=== PATIENT | female | born 1990 | race Caucasian/White ===

== ENCOUNTER → 2019-08-18 10:58 | Outpatient (BNVA) | payer OTHER, SELFPAY | PROVIDERS: Family Provider Family Medicine; PCP Family Medicine; Visit Provider Family Medicine | DX: Z86.39 Personal history of other endocrine, nutritional and metabolic disease (principal); E66.8 Other obesity | CPT/HCPCS: 80053; 84439; 84443; 85025 ==

== ENCOUNTER 2019-08-23 15:39 | Outpatient (CLI) | payer OTHER, SELFPAY ==
--- NOTE | 2019-08-23 15:45 | US_ITS ---
WS: [id number] THYROID ULTRASOUND HISTORY: history thyroid cyst COMPARISON: 05/10/2015 Right lobe: 5.6 cm x 2.0 cm x 2.0 cm. Volume: 11.6 cm3. Mildly enlarged thyroid. There is a colloid cyst in the inferior pole measuring 4 x 3 x 3 mm. There i s an additional hypoechoic ill-defined nodule in the mid gland towards the isthmus measuring 1.1 x 0. 7 x 1.0 cm. Mild peripheral increased vascularity. Left lobe: 6.0 cm x 1.6 cm x 1.4 cm. Volume: 7.2 cm3. Multiple small complex cystic nodules in the LEFT gland. There is an additional solid nodule in the i nferior pole measuring 2.1 x 0.9 x 1.4 cm. Mild increased peripheral vascularity. The large colloid c yst that was described on the prior study is no longer present. Isthmus: 0.5 cm. US/US thyroid [id number] IMPRESSION: 1. Bilateral solid lower pole thyroid nodules. Both of these nodules have conc erning features for malignancy. Not definitely visualized on the study from 201 6. 2. Recommend ultrasound-guided fine-needle aspiration of bilateral thyroid nod ules.
== END 2019-08-23 15:40 | disposition home or self-care (01) ==
LOC: RADWPI 15:52
PROVIDERS: Family Provider Family Medicine; PCP Family Medicine; Visit Provider Family Medicine
DX: Z86.39 Personal history of other endocrine, nutritional and metabolic disease (principal); E04.2 Nontoxic multinodular goiter
CPT/HCPCS: 76536

== ENCOUNTER 2019-09-23 08:06 | Outpatient (CLI) | payer MEDICAID, SELFPAY ==
--- NOTE | 2019-09-23 08:00 | FL_ITS ---
WS: [id number] HYSTEROSALPINGOGRAM The cervical opening was cannulated by the salon stylist. Then under fluoroscopic guidance, water-solu ble contrast was injected in a retrograde fashion. CLINICAL INFORMATION: N97.9 Female infertility, unspecified COMPARISON: None. FINDINGS: The uterus fills normally, with no evidence of contour abnormality, filling defect, septum, stricture , mass, or bicornuate configuration. Initial but decreased filling involving the left fallopian tube. Very faint contrast filling of the right fallopian tube with a tiny amount of contrast. Fallopian tu bes appear atretic and decreased in caliber likely due to chronic fibrosis/PID. No significant spilla ge into the peritoneum. FLUOROSCOPY TIME: 0.7 minutes. FL/FL hysterosalpingography [id number] IMPRESSION: 1. Uterus fills normally with normal contour. No uterine filling defects. 2. Atretic fallopian tubes bilaterally with a small amount of filling of the l eft. No significant spillage into the peritoneum.
--- NOTE | 2019-09-23 08:46 | PM.ACPR ---
Procedure/Consent Procedure Narrative: RADIOLOGIC PROCEDURE DATE OF PROCEDURE: 09/23/2019 DATE OF DICTATION: 09/23/2019 TIME OF DICTATION: 8: 47 PROCEDURAL DIAGNOSIS: Infertility PROCEDURE: Placement of hysterosalpingogram catheter PHYSICIAN: Farhan Chinchilla M.D. ANESTHESIA: None INDICATIONS: Patient is a 29-year-old 1, para 1 who has been attempting for >5 years. She has had an initial evaluation to the office and also semen analysis. She is now presenting for hysterosalpingogram. PROCEDURE: The procedure was explained to the patient and verbal consent provided. Sterile speculum was placed in the vagina and the cervix was prepped with Betadine. The cervix was grasped with a single-tooth tenaculum. Using Omnipaque dye, the HSG catheter was primed. The catheter was inserted into the cervix. The speculum was removed. Fluoroscopy was performed by the radiologist. Omnipaque dye was injected into the endometrial cavity with normal filling of the cavity. Free spillage of dye noted from the left tube. Filling of the right tube was noted, but could not confirm spillage from the right tube. 10 mL of dye was used. The tenaculum and catheter were removed. Patient tolerated the procedure well. Please see separate radiologist's report for final interpretation. FOLLOWUP APPOINTMENT: She is to followup at her next scheduled appointment.
[2019-09-23] MEDS: iohexol 300 mg/mL 50 mL Btl VAGINAL (08:51)
== END 2019-09-23 08:07 | disposition home or self-care (01) ==
LOC: RAD 08:06
PROVIDERS: PCP Family Medicine; Visit Provider Obstetrics & Gynecology
DX: N97.9 Female infertility, unspecified (principal)
CPT/HCPCS: 12345; 74740

== ENCOUNTER → 2019-11-04 14:13 | Outpatient (BNVA) | payer MEDICAID, SELFPAY | PROVIDERS: PCP Family Medicine; Visit Provider Obstetrics & Gynecology | DX: N97.9 Female infertility, unspecified (principal) | CPT/HCPCS: 84144 ==

== ENCOUNTER → 2019-12-01 10:28 | Outpatient (BNVA) | payer MEDICAID, SELFPAY | PROVIDERS: PCP Family Medicine; Visit Provider Obstetrics & Gynecology | DX: N97.9 Female infertility, unspecified (principal) | CPT/HCPCS: 84144 ==

== ENCOUNTER → 2020-01-11 12:35 | Outpatient (BNVA) | payer MEDICAID, SELFPAY | PROVIDERS: PCP Family Medicine; Visit Provider Family Medicine | DX: E03.9 Hypothyroidism, unspecified (principal); D50.8 Other iron deficiency anemias; M79.7 Fibromyalgia; E66.8 Other obesity; M51.9 Unspecified thoracic, thoracolumbar and lumbosacral intervertebral disc disorder; Z86.39 Personal history of other endocrine, nutritional and metabolic disease | CPT/HCPCS: 80053; 84443; 85025; 85651 ==

== ENCOUNTER → 2020-05-24 14:10 | Outpatient (BNVA) | payer BC, MEDICAID, SELFPAY | PROVIDERS: PCP Family Medicine; Visit Provider Obstetrics & Gynecology | DX: Z20.2 Contact with and (suspected) exposure to infections with a predominantly sexual mode of transmission (principal); N76.0 Acute vaginitis; B96.89 Other specified bacterial agents as the cause of diseases classified elsewhere | CPT/HCPCS: 86592; 87491; 87591; 87661; 87806 ==

== ENCOUNTER → 2020-07-13 13:44 | Outpatient (BNVA) | payer BC, MEDICAID, SELFPAY | PROVIDERS: PCP Family Medicine; Referring Provider Family Medicine; Visit Provider Anesthesiology Pain Medicine | DX: M25.551 Pain in right hip (principal); M25.552 Pain in left hip; M47.816 Spondylosis without myelopathy or radiculopathy, lumbar region; M54.16 Radiculopathy, lumbar region; M54.9 Dorsalgia, unspecified; F17.210 Nicotine dependence, cigarettes, uncomplicated; Z79.891 Long term (current) use of opiate analgesic | CPT/HCPCS: 99204 ==

== ENCOUNTER 2020-07-25 19:54 | Emergency (ER) | payer BC, MEDICAID, SELFPAY ==
[2020-07-25 20:07] VITALS: BP 144/103; PULSE 87; RESP 18; TEMP 36.8; O2SAT 100; BMI 29.6
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
--- NOTE | 2020-07-25 22:33 | XR_ITS ---
WS: [id number] Exam: XR hip RT 2-3V wo/w pel* [id number] Date/Time of Exam: 07/25/2020 10:35 PM Reason For Exam: injury with pain Findings: No fractures or bone anomalies are noted. No unusual soft tissue masses or calcifications are seen. The bony elements of the hip are in adequate alignment. XR/XR hip RT 2-3V wo/w pel* [id number] IMPRESSION: Negative right hip.
--- NOTE | 2020-07-25 22:33 | XR_ITS ---
WS: [id number] Exam: XR knee RT 3V* [id number] Date/Time of Exam: 07/25/2020 10:35 PM Reason For Exam: injury with pain No fracture or dislocation. No joint effusion. Joint compartments are relatively well maintained. XR/XR knee RT 3V* [id number] IMPRESSION: 1. No acute fracture noted.
[2020-07-25] MEDS: ondansetron 4 MG Tablet PO (22:57)
[2020-07-25 22:58] VITALS: RESP 18
[2020-07-25] MEDS: morphine 4 mg/mL SDV 1 mL IM (22:58)
--- NOTE | 2020-07-25 22:59 | XR_ITS ---
WS: [id number] Exam: XR lumbar spine 2-3V* [id number] Date/Time of Exam: 07/25/2020 11:00 PM Reason For Exam: low back pain after injury Comparison 06/18/2016. No fracture or dislocation. The disc spaces are preserved. Posterior elements are intact. SI joints a re open. XR/XR lumbar spine 2-3V* [id number] IMPRESSION: 1. Negative lumbar spine study.
[2020-07-26 00:06] VITALS: BP 127/85; PULSE 77; RESP 18; TEMP 36.9; O2SAT 98
== END 2020-07-26 00:07 | disposition home or self-care (01) ==
PROVIDERS: Emergency Provider Physician Assistant; PCP Family Medicine
DX: M54.16 Radiculopathy, lumbar region (principal); J01.00 Acute maxillary sinusitis, unspecified; F17.210 Nicotine dependence, cigarettes, uncomplicated
CPT/HCPCS: 72100; 73502; 73562; 96372; 99284; J2270; J2930; Q0162

== ENCOUNTER → 2020-08-01 15:04 | Outpatient (BNVA) | payer BC, MEDICAID, SELFPAY | PROVIDERS: PCP Family Medicine; Visit Provider Podiatrist Foot & Ankle Surgery | DX: S82.431A Displaced oblique fracture of shaft of right fibula, initial encounter for closed fracture (principal); X58.XXXA Exposure to other specified factors, initial encounter; M25.571 Pain in right ankle and joints of right foot | CPT/HCPCS: 73610 ==

== ENCOUNTER 2020-08-01 15:50 | Outpatient (CLI) | payer BC, MEDICAID, SELFPAY | END 2020-08-01 15:51 | disposition home or self-care (01) | LOC: SPT 15:59 | PROVIDERS: PCP Family Medicine; Visit Provider Podiatrist Foot & Ankle Surgery | DX: Z46.89 Encounter for fitting and adjustment of other specified devices (principal); S82.851D Displaced trimalleolar fracture of right lower leg, subsequent encounter for closed fracture with routine healing; X58.XXXD Exposure to other specified factors, subsequent encounter | CPT/HCPCS: 97760; L4361 ==

== ENCOUNTER 2020-08-02 13:10 | Outpatient (CLI) | payer BC, MEDICAID, SELFPAY ==
--- NOTE | 2020-08-02 13:36 | MR_ITS ---
WS: [id number] MRI LUMBAR SPINE NONCONTRAST TECHNIQUE: Sagittal T1, T2 and STIR imaging. Axial T1 and T2 imaging. CLINICAL INFORMATION: PAIN COMPARISON: None. FINDINGS: Mild lumbar curve. No acute compression. No high-grade central canal stenosis. Disc bulging worse L5- S1. L1-L2: Normal. L2-L3: Normal. L3-L4: Mild bulging. Mild facet arthropathy. Spinal canal and foramen are patent. L4-L5: No significant disc bulging. Mild facet arthropathy. Spinal canal and foramen are patent. L5-S1: Tiny shallow central protrusion. Slight effacement of ventral thecal sac. Spinal canal and for amen are patent. Mild facet arthropathy. Partially visualized bilateral adnexal cystic lesions. This can be further evaluated ultrasound. MR/MR lumbar spine wo con* [id number] IMPRESSION: 1. Mild lumbar curve. No acute compression. No high-grade central canal stenos is. 2. Tiny shallow central protrusion L5-S1 with slight effacement of ventral the rod sac. Spinal canal and foramen are patent. 3. Mild facet arthropathy L3-4 L4-L5. 4. Partially visualized bilateral adnexal cystic lesions. This can be further evaluated with ultrasound.
--- NOTE | 2020-08-02 13:38 | XR_ITS ---
WS: [id number] LUMBAR SPINE FLEXION AND EXTENSION TECHNIQUE: 3 views of the lumbar spine: Lateral neutral, flexion, and extension views. CLINICAL INFORMATION: M47.816 - Spondylosis without myelopathy or radiculopathy, lumbar region COMPARISON: None. FINDINGS: Normal lumbar alignment on the neutral view. No instability on the flexion and extension views. Disc space narrowing L5-S1. Chronic anterior wedging at T10 and T11 XR/XR lumbar spine f/e only [id number] IMPRESSION: No instability on flexion-extension.
== END 2020-08-02 13:11 | disposition home or self-care (01) ==
PROVIDERS: PCP Family Medicine; Visit Provider Anesthesiology Pain Medicine
DX: M47.816 Spondylosis without myelopathy or radiculopathy, lumbar region (principal); M51.27 Other intervertebral disc displacement, lumbosacral region
CPT/HCPCS: 72120; 72148

== ENCOUNTER → 2020-08-04 15:47 | Outpatient (BNVA) | payer BC, MEDICAID, SELFPAY | PROVIDERS: PCP Family Medicine; Visit Provider Nurse Practitioner Family | DX: S82.431A Displaced oblique fracture of shaft of right fibula, initial encounter for closed fracture (principal); X58.XXXA Exposure to other specified factors, initial encounter | CPT/HCPCS: 73610 ==

== ENCOUNTER → 2020-08-15 15:16 | Outpatient (BNVA) | payer BC, MEDICAID, SELFPAY | PROVIDERS: PCP Family Medicine; Visit Provider Podiatrist Foot & Ankle Surgery | DX: S82.431A Displaced oblique fracture of shaft of right fibula, initial encounter for closed fracture (principal); X58.XXXA Exposure to other specified factors, initial encounter; M25.571 Pain in right ankle and joints of right foot | CPT/HCPCS: 73610 ==

== ENCOUNTER → 2020-08-25 09:52 | Outpatient (BNVA) | payer BC, MEDICAID, SELFPAY | PROVIDERS: PCP Family Medicine; Visit Provider Anesthesiology Pain Medicine | DX: M54.41 Lumbago with sciatica, right side (principal); M54.42 Lumbago with sciatica, left side; M54.9 Dorsalgia, unspecified; M54.16 Radiculopathy, lumbar region; F17.210 Nicotine dependence, cigarettes, uncomplicated; Z79.891 Long term (current) use of opiate analgesic | CPT/HCPCS: 99215 ==

== ENCOUNTER → 2020-09-06 13:16 | Outpatient (BNVA) | payer BC, MEDICAID, SELFPAY | PROVIDERS: PCP Family Medicine; Visit Provider Anesthesiology Pain Medicine | DX: M47.816 Spondylosis without myelopathy or radiculopathy, lumbar region (principal); M54.9 Dorsalgia, unspecified; F17.210 Nicotine dependence, cigarettes, uncomplicated; Z79.891 Long term (current) use of opiate analgesic | CPT/HCPCS: 64493; 64494 ==

== ENCOUNTER → 2020-09-07 14:22 | Outpatient (BNVA) | payer BC, MEDICAID, SELFPAY | PROVIDERS: PCP Family Medicine; Visit Provider Podiatrist Foot & Ankle Surgery | DX: S82.831A Other fracture of upper and lower end of right fibula, initial encounter for closed fracture (principal); X58.XXXA Exposure to other specified factors, initial encounter; M25.571 Pain in right ankle and joints of right foot | CPT/HCPCS: 73610 ==

== ENCOUNTER → 2020-09-21 13:12 | Outpatient (BNVA) | payer BC, MEDICAID, SELFPAY | PROVIDERS: PCP Family Medicine; Visit Provider Podiatrist Foot & Ankle Surgery | DX: S82.401A Unspecified fracture of shaft of right fibula, initial encounter for closed fracture (principal); X58.XXXA Exposure to other specified factors, initial encounter | CPT/HCPCS: 73610 ==

== ENCOUNTER 2020-09-21 14:38 | Outpatient (CLI) | payer BC, MEDICAID, SELFPAY | END 2020-09-21 14:39 | disposition home or self-care (01) | LOC: SPT 14:38 | PROVIDERS: PCP Family Medicine; Visit Provider Podiatrist Foot & Ankle Surgery | DX: Z46.89 Encounter for fitting and adjustment of other specified devices (principal); S82.851D Displaced trimalleolar fracture of right lower leg, subsequent encounter for closed fracture with routine healing; X58.XXXD Exposure to other specified factors, subsequent encounter | CPT/HCPCS: 97760; L1902 ==

== ENCOUNTER → 2020-09-28 12:44 | Outpatient (BNVA) | payer BC, MEDICAID, SELFPAY | PROVIDERS: PCP Family Medicine; Visit Provider Anesthesiology Pain Medicine | DX: M54.9 Dorsalgia, unspecified (principal); M54.16 Radiculopathy, lumbar region; F17.210 Nicotine dependence, cigarettes, uncomplicated; Z79.891 Long term (current) use of opiate analgesic | CPT/HCPCS: 99214 ==

== ENCOUNTER → 2020-11-16 14:32 | Outpatient (BNVA) | payer BC, MEDICAID, SELFPAY | PROVIDERS: PCP Family Medicine; Visit Provider Podiatrist Foot & Ankle Surgery | DX: S82.831A Other fracture of upper and lower end of right fibula, initial encounter for closed fracture (principal); X58.XXXA Exposure to other specified factors, initial encounter; M79.671 Pain in right foot | CPT/HCPCS: 73610 ==

== ENCOUNTER → 2020-12-06 11:54 | Outpatient (BNVA) | payer BC, MEDICAID, SELFPAY | PROVIDERS: PCP Family Medicine; Visit Provider Podiatrist Foot & Ankle Surgery | DX: S82.831A Other fracture of upper and lower end of right fibula, initial encounter for closed fracture (principal); X58.XXXA Exposure to other specified factors, initial encounter; M79.671 Pain in right foot | CPT/HCPCS: 73610 ==

== ENCOUNTER 2021-01-03 12:46 | Emergency (ER) | payer BC, MEDICAID, SELFPAY ==
[2021-01-03 13:15] VITALS: BP 128/85; PULSE 87; RESP 19; TEMP 37; O2SAT 95
[2021-01-03 13:24] VITALS: BP 126/76; PULSE 89; RESP 18; O2SAT 100
--- NOTE | 2021-01-03 13:33 | CT_ITS ---
WS: [id number] CT HEAD NONCONTRAST HISTORY: headache, fall, syncope TECHNIQUE: Contiguous axial imaging performed through the brain in 2.5 mm imaging. Bone and soft tiss ue windows. Sagittal and coronal reformats reviewed. All CT scans at [facility] use at ast one of these dose optimization techniques: automated exposure control; mA and/or kV adjustment pe r patient size (includes targeted exams where dose is matched to clinical indication); or iterative r econstruction. DLP: 831.69 mGy.cm COMPARISON: 01/17/2010 No acute intracranial hemorrhage, midline shift or mass effect. No atrophy or prior infarcts or herniation. Ventricles: Normal size with no hydrocephalus. Paranasal sinuses: As visualized are clear. Mastoid air cells: Well pneumatized. Calvarium and scalp: Skull is intact with no soft tissue edema or swelling. CT/CT head wo con* [id number] IMPRESSION: Negative head CT.
--- NOTE | 2021-01-03 13:43 | PC.PHAR ---
PT STATES SHE TAKES CARE OF HER OWN MEDICATIONS-PT STATES SHE TAKES ALOT OF IBUPROFEN PT STATES SHE TAKES 1000-1200MG SOMETIMES MORE THAN EVERY 4 HOURS-NOTES ARE MADE IN THE PHARMACY COMMENTS
--- NOTE | 2021-01-03 13:45 | ED_ITS ---
HPI - General Adult General: Chief complaint: Abdominal Pain Stated complaint: SENT BY [facility] [place]: ABD PAIN, EAR PAIN Time Seen by Provider: 01/03/21 12:56 History of Present Illness: HPI narrative: Patient is a 30-year-old female with history of obesity, hypothyroidism, prior history of anemia who presents to the emergency room for evaluation of upper abdominal pain, nausea, decreased p.o. intake and diarrhea x3 days in the setting of 1 month of R ear pain and dr beavers. Patient was seen in urgent care for all these symptoms yesterday and was diagnosed with gastritis and otitis externa. Patient was prescribed Ciprodex eardrops for the right ear symptoms and protonix for GI symptoms. Patient tells me that she is a frequent swimmer has noticed ear pain in the right side. Patient denies any vertigo, focal weakness, diplopia or tinnitus. Patient also reports cough and mild generalized weakness with the abdominal pain. Prior hx of renal colic but report different symptoms to current pain, no other prior abdominal surgeries. Denies any urinary symptoms at this time. No history of pyelonephritis. Onset:3 days ago (upper abd pain/N/diarrhea), 1 month ago (R ear pain and discharge) Duration:3 days Location:home Severity:mild/moderate Review of Systems Narrative: Constitutional: No fever, no chills. HEENT: No vision changes, +R ear pain and discharge CV: No chest pain, no palpitations PULM: no cough, no dyspnea. GI: +abdominal pain, +N/-V/+D. : No dysuria MSKEL: No muscle pain SKIN: No new rashes, no lesions. NEURO: No headache, no focal weakness. HEME: No visible bruises PSYCH: Normal mood PFSH ED PFSH: Medical History Asthma Fibromyalgia History of thyroid cyst Hypothyroid Iron deficiency anemia Lumbar disc disease Lumbar disc disease with radiculopathy Moderate obesity Venous (peripheral) insufficiency Surgical History History of carpal tunnel surgery of right wrist (11/19/13) Performed by Dr. Peterson at [facility] in [place], [place]. History of hand surgery (10/02/10) Repair of the lacerated extensor tendon third finger. Performed by Dr. Whittington at [facility] in [place], [place] Family History Grandfather Cancer Stroke Paternal Hypertension Paternal Grandmother Dementia Hypertension Paternal Unknown Diabetes Multiple family members on paternal side Psychiatric illness Aunt Suicide Aunt Sister and Cousin attempted but unsuccessful. Mother Hyperlipidemia Hypertension Father Hyperlipidemia Hypertension Family/Other Heart disease Maternal great-grandmother Breast cancer, Onset Age: 28 Maternal aunt Social History Smoking and tobacco status: current every day smoker cigarettes Alcohol intake: never Lives independently: Yes History of recent travel: No Female Reproductive History: Date of last menstrual period: 07/27/20 Physical Exam Narrative: EXAM NARRATIVE: Head: Atraumatic Eyes: PERRL, conjunctiva without injection ENT: Mucous membrane moist, +mild R EAC erythema, TM intact R, no mastoid tenderness NECK: Supple, ROM intact LUNGS: LCTAB, no crackles/rhonchi CV: RRR ABDOMEN: Soft, + mild LUQ and midepigastric tenderness to palpation, no Monaco sign, no guarding, no rebound tenderness, no CVA tenderness, no McBurney's point tenderness EXTREMITY: Normal ROM SKIN: No rash or erythema NEURO: Awake and alert, no focal motor deficits PSYCH: Normal mood and affect Course Vital Signs: Vital signs: Vital Signs Temperature 98.6 F 01/03/21 13:15 Pulse Rate 66 01/03/21 15:30 Respiratory Rate 18 01/03/21 15:30 Blood Pressure 133/79 01/03/21 15:30 Pulse Oximetry 93 01/03/21 15:30 MDM - General Adult MDM Narrative: Medical decision making narrative: 30-year-old female with history obesity, hypothyroidism presenting to the emergency room for evaluation of upper abdominal pain, diarrhea, nausea x3 days in setting of right ear discharge and pain x1 month. +Mild R EAC erythema and +LUQ/midepigastric abdominal tenderness to palpation. Earache and draniage symptoms are likely reflective of mild otitis externa. No signs of mastoiditis on CT. Bedside ultrasound did not show any signs of gallbladder pathologies. I suspect that this is gastroenteritis. White count of 6.6K, lab work-up otherwise showed a potassium of 3.4. Patient is negative for UTI. At this time, do not suspect emergent abdominal pathologies. I performed a bedside RUQ US which did not show any gallbladder pathologies at this time. Considered appendicitis however unlikely at this time given lack of signs and sx's to suggest appendicitis as etiology. Pt counseled that appendicitis may later develop and given appendicitis precautions and instructed to return if any development of RLQ tenderness, worsening or continued abdominal pain, or any fevers, chills, nausea, vomiting, or any other concerning signs or symptoms. Patient is instructed continue her Ciprodex as prescribed by urgent care clinic. Lab Data: Labs: Lab Results 01/03/21 01/03/21 01/03/21 Range/Units 14:00 14:00 14:04 WBC 6.6 (4.0-10.0) 10^3/ uL RBC 3.79 L (4.1-5.3) 10^6/u L Hgb 8.4 L (11.5-15.3) g/dL Hct 29.6 L (37.0-47.0) % MCV 78.1 L (81-99) fl MCH 22.2 L (28.0-34.0) pg MCHC 28.4 L (30.0-36.0) g/dL RDW 16.2 H (12.1-15.1) % Plt Count 347 (130-400) 10^3/c mm MPV 9.9 (7.4-10.4) fL Neut % (Auto) 67.3 % Lymph % (Auto) 20.5 % Montague % (Auto) 11.0 % Eos % (Auto) 0.5 % Baso % (Auto) 0.5 % Neut # (Auto) 4.47 (1.8-7.7) 10^3/u L Lymph # (Auto) 1.4 (0.8-4.8) 10^3/u L Montague # (Auto) 0.7 (0.2-0.9) 10^3/u L Eos # (Auto) 0.0 (0.0-0.8) 10^3/u L Baso # (Auto) 0.0 (0.0-0.1) 10^3/u L Nucleated RBC % (a uto) 0 % Nucleated RBCs # 0.0 /100WBC Sodium 137 (136-145) mmol/L Potassium 3.4 L (3.5-5.1) mmol/L Chloride 103 (98-107) mmol/L Carbon Dioxide 20 L (22-29) mmol/L Anion Gap 17.4 (5-19) BUN 4 L (6-20) mg/dL Creatinine 0.4 L (0.5-0.9) mg/dL GFR Calculation 185.0 H (90-130) mL/min Glucose 73 (65-115) mg/dL Calculated Osmolal ity 279 L (285-295) mOsm/k g Calcium 9.0 (8.5-10.5) mg/dL Total Bilirubin 0.2 (0.15-1.2) mg/dL AST 14 (0-32) U/L ALT 8 (0-33) U/L Alkaline Phosphata se 88 (35-105) IU/L Total Protein 6.9 (6.6-8.7) g/dL Albumin 4.0 (3.5-5.2) g/dL Globulin 2.9 (1.3-4.6) g/dL Lipase 11 L (13-60) U/L Urine Color (Yellow) Urine Appearance (CLEAR) Urine pH (5-7) Ur Specific Gravit y (1.005-1.030) Urine Protein (Negative) Urine Glucose (UA) (Normal) Urine Ketones (Negative) Urine Blood (Negative) Urine Nitrate (Negative) Urine Bilirubin (Negative) Prot Sulfosalicyli c Acd (Negative) Urine Urobilinogen (Negative) mg/dL Ur Leukocyte Alicia ase (Negative) Urine HCG, Qual (Negative) SARS-CoV-2 Ag (Rap id) Negative (Negative) 01/03/21 01/03/21 Range/Units 14:40 14:40 WBC (4.0-10.0) 10^3/ uL RBC (4.1-5.3) 10^6/u L Hgb (11.5-15.3) g/dL Hct (37.0-47.0) % MCV (81-99) fl MCH (28.0-34.0) pg MCHC (30.0-36.0) g/dL RDW (12.1-15.1) % Plt Count (130-400) 10^3/c mm MPV (7.4-10.4) fL Neut % (Auto) % Lymph % (Auto) % Montague % (Auto) % Eos % (Auto) % Baso % (Auto) % Neut # (Auto) (1.8-7.7) 10^3/u L Lymph # (Auto) (0.8-4.8) 10^3/u L Montague # (Auto) (0.2-0.9) 10^3/u L Eos # (Auto) (0.0-0.8) 10^3/u L Baso # (Auto) (0.0-0.1) 10^3/u L Nucleated RBC % (a uto) % Nucleated RBCs # /100WBC Sodium (136-145) mmol/L Potassium (3.5-5.1) mmol/L Chloride (98-107) mmol/L Carbon Dioxide (22-29) mmol/L Anion Gap (5-19) BUN (6-20) mg/dL Creatinine (0.5-0.9) mg/dL GFR Calculation (90-130) mL/min Glucose (65-115) mg/dL Calculated Osmolal ity (285-295) mOsm/k g Calcium (8.5-10.5) mg/dL Total Bilirubin (0.15-1.2) mg/dL AST (0-32) U/L ALT (0-33) U/L Alkaline Phosphata se (35-105) IU/L Total Protein (6.6-8.7) g/dL Albumin (3.5-5.2) g/dL Globulin (1.3-4.6) g/dL Lipase (13-60) U/L Urine Color Yellow (Yellow) Urine Appearance Clear (CLEAR) Urine pH 8 H (5-7) Ur Specific Gravit y 1.010 (1.005-1.030) Urine Protein Neg (Negative) Urine Glucose (UA) Norm (Normal) Urine Ketones Negative (Negative) Urine Blood Neg (Negative) Urine Nitrate Negative (Negative) Urine Bilirubin Neg (Negative) Prot Sulfosalicyli c Acd Negative (Negative) Urine Urobilinogen Neg (Negative) mg/dL Ur Leukocyte Alicia ase Negative (Negative) Urine HCG, Qual Negative (Negative) SARS-CoV-2 Ag (Rap id) (Negative) Imaging Data^: Other Imaging: Radiologist's impression: [id number] [facility].[place], [place] [address]YW Scan ReportSigned Patient: Helen Mccauley #: [id number]: 1990Acct#:[id number]/Sex: 30 / FADM Date: 01/03/21Loc: ERRoom/Bed:Attending Dr: Ordering Provider/Ordering MD: Santiago Mazariegos MD Date of Service: 01/03/21 Procedure(s): CT head wo con* [id number] Accession Number(s): [id number] Report Number: [id number] WS: [id number] CT HEAD NONCONTRAST HISTORY: headache, fall, syncope TECHNIQUE: Contiguous axial imaging performed through the brain in 2.5 mm imaging. Bone and soft tissue windows. Sagittal and coronal reformats reviewed. All CT scans at [facility] use at least one of these dose optimization techniques: automated exposure control; mA and/or kV adjustment per patient size (includes targeted exams where dose is matched to clinical ind ication); or iterative reconstruction. DLP: 831.69 mGy.cm COMPARISON: 01/17/2010 No acute intracranial hemorrhage, midline shift or mass effect. No atrophy or prior infarcts or herniation. Ventricles: Normal size with no hydrocephalus. Paranasal sinuses: As visualized are clear. Mastoid air cells: Well pneumatized. Calvarium and scalp: Skull is intact with no soft tissue edema or swelling. CT/CT head wo con* [id number] IMPRESSION: Negative head CT. Dictated By:Nitza Smith DOSigned By:Nitza Smith DOSigned Date/Time:01/03/21 1431DD/ 1429 Discharge Plan Discharge Patient Disposition: Home Clinical Impression: Diarrhea, Abdominal pain, Nausea, Anemia, Otitis externa Condition: Stable Prescriptions: New Maalox Advanced 1,000-60 mg tablet,chewable 1 tab PO TID PRN (Reason: abdominal pain) 7 Days Qty: 21 RF: 0 Pepcid AC 20 mg tablet 20 mg PO BID PRN (Reason: abdominal pain) 28 Days Qty: 56 RF: 0 Pepto-Bismol 262 mg tablet 2 tab PO Q30M PRN (Reason: abdominal pain) 10 Days Qty: 30 RF: 0 No Action aspirin 81 mg tablet,chewable 81 mg PO DAILY RF: 0 (DME) ASO to the Right See Rx Instructions .ROUTE .MEDSUPPLY Qty: 1 RF: 0 ciprofloxacin-dexamethasone [Ciprodex] 0.3-0.1 % drops,suspension 4 drp otic (ear) Q12H 7 Days Qty: 7.5 RF: 0 pantoprazole [Protonix] 40 mg tablet,delayed release (DR/EC) 40 mg PO DAILY 14 Days Qty: 14 RF: 0 loratadine [Claritin] 10 mg tablet 10 mg PO DAILY RF: 0 albuterol sulfate [ProAir HFA] 90 mcg/actuation HFA aerosol inhaler 2 puff inhalation Q6H PRN (Reason: shortness of breath or wheezing) Qty: 8.5 RF: 0 (DME) ASO to the Right See Rx Instructions .ROUTE .MEDSUPPLY Qty: 1 RF: 0 tramadol 50 mg tablet 50 mg PO TID PRN (Reason: pain) 30 Days Qty: 90 RF: 5 phentermine 37.5 mg capsule 37.5 mg PO DAILY Qty: 30 RF: 0 cyclobenzaprine 5 mg tablet 5 mg PO TID PRN (Reason: muscle spasm) Qty: 90 RF: 0 Tylenol Extra Strength 500 mg Tablet 1,000 mg PO Q4H PRN (Reason: Pain) RF: 0 ibuprofen 200 mg Tablet 1,000 - 1,200 mg PO Q4H PRN (Reason: Pain) RF: 0 diclofenac sodium 75 mg tablet,delayed release (DR/EC) 75 mg PO BID PRN (Reason: Pain) RF: 0 gabapentin 800 mg tablet 800 mg PO TID RF: 0 trazodone 100 mg tablet 100 - 200 mg PO BEDTIME RF: 0 Discharge Orders: Discharge ED (Routine); Ordered 01/03/21 Ordered By: Santiago Mazariegos Referrals: Domingo Gardner MD [Primary Care Provider] - Discharge Diet: Advance as tolerated Discharge Activity: Resume usual activity Patient Instructions: Diarrhea - Adult, Abdominal Pain (ED) Activity Restrictions/Additional Instructions: Come back to the emergency room if your symptoms has not improved, if you have any signs of dehydration, any worsening vomiting, any abdominal pain, or any new or concerning issues. . Coding Level of Care Code ED Bird Raiser for Gordon Jurado
[2021-01-03] MEDS: acetaminophen 500 mg Tablet PO (14:12)
[2021-01-03] MEDS: sodium chloride 0.9% 1,000 ML 999 ML IV (14:13)
[2021-01-03 14:14] LABS: Basophils % 0.5 %; Eosinophils % 0.5 %; Hematocrit 29.6 % (37.0-47.0); Hemoglobin 8.4 g/dL (11.5-15.3); Lymphocytes # 1.4 10^3/uL (0.8-4.8); Lymphocytes % 20.5 %; Mean Corpuscular HGB Conc 28.4 g/dL (30.0-36.0); Mean Corpuscular Hemoglobin 22.2 pg (28.0-34.0); Mean Corpuscular Volume 78.1 fl (81-99); Mean Platelet Volume 9.9 fL (7.4-10.4); Monocytes # 0.7 10^3/uL (0.2-0.9); Neutrophils # 4.47 10^3/uL (1.8-7.7); Neutrophils % 67.3 %; Nucleated Red Blood Cells % 0 %; Platelet Count 347 10^3/cmm (130-400); Red Blood Count 3.79 10^6/uL (4.1-5.3); Red Cell Distribution Width 16.2 % (12.1-15.1); White Blood Count 6.6 10^3/uL (4.0-10.0)
[2021-01-03] MEDS: ondansetron 2 mg/ML SDV 2 mL 4 MG IVP (14:15)
[2021-01-03] MEDS: lidocaine 2% viscous 15 ML, aluminum-mag hydrox-simethicon 30 ML, sucralfate oral liq 1 GM PO (14:18)
--- NOTE | 2021-01-03 14:40 | ECG_ITS ---
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 Measurements Intervals Chandler Rate: 52 P: 47 IA: 136 QRS: 47 QRSD: 83 T: 49 QT: 426 QTc: 399 Interpretive Statements SINUS BRADYCARDIA No previous ECG available for comparison Electronically Signed On 01-03-2021 19:39:24 CDT by Joseph Panchal M.D. [id number]
[2021-01-03 14:55] LABS: Alanine Aminotransferase 8 U/L (0-33); Alkaline Phosphatase 88 IU/L (35-105); Anion Gap 17.4 (5-19); Aspartate Amino Transferase 14 U/L (0-32); Blood Urea Nitrogen 4 mg/dL (6-20); Carbon Dioxide 20 mmol/L (22-29); Chloride 103 mmol/L (98-107); Globulin 2.9 g/dL (1.3-4.6); Glucose 73 mg/dL (65-115); Lipase 11 U/L (13-60); Osmolality Calculated 279 mOsm/kg (285-295); Potassium 3.4 mmol/L (3.5-5.1); Sodium 137 mmol/L (136-145); Total Bilirubin 0.2 mg/dL (0.15-1.2); Total Protein 6.9 g/dL (6.6-8.7)
[2021-01-03 15:30] VITALS: BP 133/79; PULSE 66; RESP 18; O2SAT 93
[2021-01-03 15:38] LABS: SARS Covid-2 Antigen Negative (Negative)
[2021-01-03 15:49] LABS: Add Urine Microscopic? NO; Charge for UA Resulting for Rev
[2021-01-03] MEDS: alum-mag-hydroxide-sime 30 mL UDC PO (15:49)
[2021-01-03 16:03] LABS: Bilirubin Urine Neg (Negative); Blood Urine Neg (Negative); Glucose Urine UA Norm (Normal); Ketones Urine Negative (Negative); Leukocyte Esterase Urine Negative (Negative); Nitrate Urine Negative (Negative); Protein Urine Neg (Negative); Sulfosalicylic Acid Urine Negative (Negative); Urine Appearance Clear (CLEAR); Urine Color Yellow (Yellow); Urobilinogen Urine Neg (Negative); pH Urine 8 (5-7)
[2021-01-04 16:19] LABS: Coronavirus Test Green County Not Detected
--- NOTE | 2021-01-11 13:27 | DCPLANNER ---
Addendum entered by Ifrah Hampton 01/25/21 15:48: Patient has an appointment scheduled, and [facility] will contact patient with appointment information. Original Note: modeling agency manager had message to schedule a follow up appointment for patient with a GI specialist. modeling agency manager spoke with patient and she stated that she would like to be referred to a GI specialist at [facility]. modeling agency manager faxed patients information to [facility], who will call patient with appointment information.
== END 2021-01-03 16:20 | disposition home or self-care (01) ==
PROVIDERS: Emergency Provider Emergency Medicine; PCP Family Medicine
DX: R10.9 Unspecified abdominal pain (principal); R19.7 Diarrhea, unspecified; R11.0 Nausea; D64.9 Anemia, unspecified; H60.91 Unspecified otitis externa, right ear; F17.210 Nicotine dependence, cigarettes, uncomplicated; Z20.822 Contact with and (suspected) exposure to COVID-19
CPT/HCPCS: 70450; 80053; 81003; 81025; 83690; 85025; 87426; 87635; 93005; 96361; 96374; 99284; J2405; J7030

== ENCOUNTER → 2021-01-17 09:17 | Outpatient (BNVA) | payer BC, MEDICAID, SELFPAY | PROVIDERS: PCP Family Medicine; Visit Provider Anesthesiology Pain Medicine | DX: G89.29 Other chronic pain (principal); M54.16 Radiculopathy, lumbar region; Z79.891 Long term (current) use of opiate analgesic | CPT/HCPCS: 99214 ==

== ENCOUNTER → 2021-02-12 15:47 | Outpatient (BNVA) | payer BC, MEDICAID, SELFPAY | PROVIDERS: PCP Family Medicine; Visit Provider Nurse Practitioner | DX: J32.9 Chronic sinusitis, unspecified (principal); J40 Bronchitis, not specified as acute or chronic | CPT/HCPCS: 71046 ==

== ENCOUNTER → 2021-03-09 13:32 | Outpatient (BNVA) | payer BC, MEDICAID, SELFPAY | PROVIDERS: PCP Family Medicine; Visit Provider Nurse Practitioner Family | DX: Z20.822 Contact with and (suspected) exposure to COVID-19 (principal) | CPT/HCPCS: 87635 ==

== ENCOUNTER 2021-03-21 16:13 | Emergency (ER) | payer BC, MEDICAID, SELFPAY ==
[2021-03-21 16:29] VITALS: BP 127/66; PULSE 81; RESP 17; TEMP 36.8; O2SAT 99; BMI 28.4
[2021-03-21 16:34] VITALS: O2SAT 99
--- NOTE | 2021-03-21 16:55 | W.ED.COVID ---
HPI - COVID General: Chief Complaint: COVID symptoms Stated Complaint: Headaches/Cold Chills/Nausea/Fever Time Seen by Provider: 03/21/21 16:41 Source: patient Mode of arrival: ambulatory Limitations: no limitations Triage information: Has fever, cough or shortness of breath. Exposure to COVID + person last 14 days History of Present Illness: HPI Narrative: Patient is a nice 30-year-old female who presents to ED today for evaluation of COVID symptoms. Patient states she tested positive for COVID on 03/09/2021. She states she began having symptoms approximately 48 hours before the positive test. This would make her on day 14 of symptoms. Patient tells me she will have good days where she is mildly symptomatic and then others or symptoms seem to be a little bit more burdensome. She is complaining of intermittent fevers, nonproductive cough, fatigue, shortness of breath, headaches, and diarrhea. Patient states she is just here because her quarantine was supposed to be lifted after 10 days but because she is symptomatic feels she probably needs to continue quarantining and will need a note for work for this. Patient is continuing to eat and drink well. complaint: known COVID positive Prior covid testing: yes, results known Prior testing date: 03/09/21 COVID 19 common symptoms: positive fever(s), non-productive cough, dyspnea, fatigue, body aches, headache(s) and diarrhea; negative nasal congestion, nausea or vomiting COVID 19 other sytmptoms: negative chest pain COVID Results: SARS-CoV-2 Antigen (Rapid) Negative (Negative) 01/03/21 14:04 01/03/21 SARS-CoV-2 RNA (RT-PCR) Detected (NOT DETECTED) A 03/09/21 13:32 03/09/21 Nasal/Oral Coronavirus 2019 PCR Not detected 01/03/21 14:04 01/03/21 Review of Systems Const: Reports: fever(s), body aches and fatigue Eyes: Denies: change in vision ENMT: Denies: nasal discharge, nasal congestion, post nasal drip or sinus pain Card: Reports: dyspnea on exertion; Denies: chest pain, palpitations, irregular heart rhythm, edema, swelling of feet/ankles, lightheadedness, syncope, pre-syncope or orthopnea Resp: Reports: dyspnea and non-productive cough; Denies: wheezing or hemoptysis GI: Reports: diarrhea; Denies: abdominal pain, nausea or vomiting : Denies: flank pain or dysuria Musc: Denies: neck pain, back pain, extremity pain, joint pain or joint redness Skin/Breast: Denies: rash Neuro: Reports: headache(s); Denies: numbness in extremities, weakness in extremities, sensory changes or dizziness PFSH ED PFSH: Medical History Asthma Fibromyalgia History of thyroid cyst Hypothyroid Iron deficiency anemia Lumbar disc disease Lumbar disc disease with radiculopathy Moderate obesity Venous (peripheral) insufficiency Surgical History History of carpal tunnel surgery of right wrist (11/19/13) Performed by Dr. Peterson at [facility] in [place], [place]. History of hand surgery (10/02/10) Repair of the lacerated extensor tendon third finger. Performed by Dr. Whittington at [facility] in [place], [place] Family History Grandfather Cancer Stroke Paternal Hypertension Paternal Grandmother Dementia Hypertension Paternal Unknown Diabetes Multiple family members on paternal side Psychiatric illness Aunt Suicide Aunt Sister and Cousin attempted but unsuccessful. Mother Hyperlipidemia Hypertension Father Hyperlipidemia Hypertension Family/Other Heart disease Maternal great-grandmother Breast cancer, Onset Age: 28 Maternal aunt Social History (Updated 03/09/21 @ 11:37 by Susan Whittington NP) Smoking and tobacco status: current every day smoker cigarettes Alcohol intake: never Lives independently: Yes History of recent travel: No Female Reproductive History: Date of last menstrual period: 07/27/20 Physical Exam Const: COMMON NORMALS: no acute distress, average body habitus, patient oriented x3, no limitations, healthy appearing, alert and well nourished GENERAL APPEARANCE: cooperative ORIENTATION/CONSCIOUSNESS: Yes awake, Yes oriented to person, Yes oriented to place and Yes oriented to time HENMT: COMMON NORMALS: normocephalic and atraumatic HEAD & SCALP: normocephalic and atraumatic Resp: COMMON NORMALS: normal respiratory effort and clear to auscultation bilaterally AUSCULTATION: clear to auscultation bilaterally Cardio: COMMON NORMALS: regular rate and regular rhythm RATE: regular rate RHYTHM: regular rhythm Extremity: COMMON NORMALS: normal to inspection Neuro: VERONIQUE COMA SCALE: document GCS findings Veronique coma scale eye opening: Spontaneous Hayward coma scale verbal response: Orientated [place] coma scale motor response: Obey commands Hayward coma scale total score: 15 COMMON NORMALS: patient oriented x3 SENSORIUM/ORIENTATION: Yes alert, Yes oriented to person, Yes oriented to place and Yes oriented to time Skin: COMMON NORMALS: no rashes or lesions noted GENERAL SKIN EXAM: no rashes or lesions noted Course Vital Signs: Vital signs: Vital Signs Temperature 98.3 F 03/21/21 16:29 Pulse Rate 81 03/21/21 16:29 Respiratory Rate 17 03/21/21 17:17 Blood Pressure 127/66 03/21/21 16:29 Pulse Oximetry 99 03/21/21 17:17 MDM - COVID MDM Narrative: Medical decision making narrative: Patient clinically appears well and in no acute distress. Her vital signs are perfect. She is past 10 days of symptoms therefore does not qualify for MCA. Do not feel she would get much benefit from oral dexamethasone either. Discussed long-haul COVID presentation. Recommend continuing conservative treatment at this time. Return to ED precautions given. She will need to continue her quarantine until she is fever free for 24 hours without medications and symptoms are improving. COVID Results: SARS-CoV-2 Antigen (Rapid) Negative (Negative) 01/03/21 14:04 01/03/21 SARS-CoV-2 RNA (RT-PCR) Detected (NOT DETECTED) A 03/09/21 13:32 03/09/21 Nasal/Oral Coronavirus 2019 PCR Not detected 01/03/21 14:04 01/03/21 Monoclonal Antibody - ED Inclusion/Exclusion Criteria age >/= 12 years, weight >/= 40kg /88lbs and + direct Sars-Cov-2 test less than 7-10 days ago obesity (BMI >25 or 85%til for age) and chronic lung disease (asthma) not requiring hospitalization, not requiring oxygen (if not chronically on oxygen) and no increase oxygen requirement (if chronically on oxygen) Plan for treatment Does not meet criteria (DO NOT GIVE) Discharge Plan Discharge Patient Disposition: Home Clinical Impression: COVID-19 Condition: Stable Prescriptions: No Action albuterol sulfate [ProAir HFA] 90 mcg/actuation HFA aerosol inhaler 2 puff inhalation Q6H PRN (Reason: shortness of breath or wheezing) Qty: 8.5 RF: 0 tizanidine 4 mg tablet 4 mg PO BID PRN (Reason: muscle spasticity) Qty: 60 RF: 0 loratadine [Claritin] 10 mg tablet 10 mg PO DAILY RF: 0 ondansetron HCl 4 mg tablet 4 mg PO Q8H PRN (Reason: nausea and vomiting) Qty: 14 RF: 0 phentermine 37.5 mg capsule 37.5 mg PO DAILY Qty: 30 RF: 0 tramadol 50 mg tablet 50 mg PO TID PRN (Reason: pain) 30 Days Qty: 90 RF: 5 Tylenol Extra Strength 500 mg Tablet 1,000 mg PO Q4H PRN (Reason: Pain) RF: 0 ibuprofen 200 mg Tablet 1,000 - 1,200 mg PO Q4H PRN (Reason: Pain) RF: 0 diclofenac sodium 75 mg tablet,delayed release (DR/EC) 75 mg PO BID PRN (Reason: Pain) RF: 0 gabapentin 800 mg tablet 800 mg PO TID RF: 0 trazodone 100 mg tablet 100 - 200 mg PO BEDTIME RF: 0 Discharge Orders: Discharge ED (Routine); Ordered 03/21/21 Ordered By: Sapna Simental Referrals: Domingo Gardner MD [Primary Care Provider] - Patient Instructions: COVID-19 (Coronavirus Disease 2019) (ED), Long COVID (ED) Activity Restrictions/Additional Instructions: As we discussed you need to continue your quarantine until you are fever free for 24 hours without medications and symptoms are consistently improving. You may return to the emergency department at anytime for severe shortness of breath, chest pain, difficulty breathing, or any other concerns you may have. I hope you begin to feel better soon. Stand Alone Forms: Work/School Release Coding Level of Care Code ED Foundation Engineer for Gordon Jurado
[2021-03-21 17:17] VITALS: RESP 17; O2SAT 99
== END 2021-03-21 17:18 | disposition home or self-care (01) ==
PROVIDERS: Emergency Provider Physician Assistant; PCP Family Medicine
DX: U07.1 COVID-19 (principal); F17.210 Nicotine dependence, cigarettes, uncomplicated
CPT/HCPCS: 99281

== ENCOUNTER 2021-03-27 13:37 | Emergency (ER) | payer BC, MEDICAID, SELFPAY ==
[2021-03-27 13:59] VITALS: BP 133/86; PULSE 86; RESP 14; TEMP 36.8; O2SAT 99; BMI 27.9
--- NOTE | 2021-03-27 14:08 | XRR_ITS ---
PROCEDURE INFORMATION: Exam: XR Chest Exam date and time: 03/27/2021 2:08 PM Age: 30 years old Clinical indication: Fever; Additional info: Covid symptoms, fevers TECHNIQUE: Imaging protocol: XR of the chest. Views: 1 view. COMPARISON: CR XR chest 2V* [id number] 02/12/2021 3:50 PM FINDINGS: Lungs: Unremarkable. No consolidation. Pleural spaces: Unremarkable. No pleural effusion. No pneumothorax. Heart/Mediastinum: Unremarkable. No cardiomegaly. Bones/joints: Unremarkable. XR/XR chest 1V portable [id number] IMPRESSION: No acute findings. Radiation Dose CTDIVOL = (mGy): DLP = (mGy-cm)
--- NOTE | 2021-03-27 14:08 | W.ED.COVID ---
Documented by User: FAINA Leong 03/27/21 16:04 HPI - COVID General: Chief Complaint: COVID symptoms Stated Complaint: sob,fever 101-102,h/a,sinus congestion,nausea Time Seen by Provider: 03/27/21 14:07 Source: patient Mode of arrival: ambulatory Limitations: no limitations Triage information: Has fever, cough or shortness of breath. No known COVID + exposure last 14 days History of Present Illness: HPI Narrative: Patient is a 30-year-old female who presents to ED today for prolonged COVID-like symptoms. Patient was seen here last week for identical symptoms. Please refer to that specific note for documentation. She is complaining today of a headache, sinus pain/pressure, nonproductive cough, shortness of breath with exertion, intermittent fevers, and diarrhea. She states she was sent home from work yesterday because of fevers of 102. She states her work is requiring a work note if she needs to further be off. Patient tested positive for COVID on 03/09. MD complaint: known COVID positive Prior covid testing: yes, results known Prior testing date: 03/09/21 COVID 19 common symptoms: positive fever(s), cough, dyspnea, fatigue, body aches, headache(s), nasal congestion and diarrhea; negative throat pain, nausea or vomiting COVID 19 other sytmptoms: negative chest pain or confusion Onset (ago): week(s) Severity: moderate Pertinent comorbid conditions: COPD/respiratory disease (asthma) Treatment prior to arrival: antibiotics (patient states she is currently taking Augmentin) COVID Results: SARS-CoV-2 Antigen (Rapid) Negative (Negative) 01/03/21 14:04 01/03/21 SARS-CoV-2 RNA (RT-PCR) Detected (NOT DETECTED) A 03/09/21 13:32 03/09/21 Nasal/Oral Coronavirus 2019 PCR Not detected 01/03/21 14:04 01/03/21 Review of Systems Const: Reports: fever(s), body aches and fatigue Eyes: Denies: change in vision, blurry vision, photophobia, eye discomfort, eye discharge, floaters or seeing flashes ENMT: Reports: ear or mastoid pain, nasal discharge, nasal congestion and sinus pain; Denies: throat pain, odynophagia, dental pain or epistaxis Card: Reports: dyspnea on exertion; Denies: chest pain, palpitations, irregular heart rhythm, edema, swelling of feet/ankles, lightheadedness, syncope, pre-syncope or orthopnea Resp: Reports: dyspnea, wheezing and chest congestion; Denies: hemoptysis GI: Reports: diarrhea; Denies: abdominal pain, nausea, vomiting, hematochezia or melena : Denies: flank pain, dysuria, hematuria, vaginal odor or vaginal discharge Musc: Denies: neck pain, back pain, extremity pain or joint pain Skin/Breast: Denies: rash Neuro: Reports: headache(s); Denies: numbness in extremities, weakness in extremities, sensory changes, lack of coordination, difficulty walking, dizziness or confusion PFSH ED PFSH: Medical History (Updated 03/28/21 @ 12:37 by Domingo Gardner MD) Asthma Constipation resume habit of more fiber in the diet (cereal) and daily use of miralax Fibromyalgia History of thyroid cyst Hypothyroid Iron deficiency anemia Lumbar disc disease Lumbar disc disease with radiculopathy Moderate obesity Venous (peripheral) insufficiency Surgical History History of carpal tunnel surgery of right wrist (11/19/13) [place] [facility] [place] History of hand surgery (10/02/10) Repair of the lacerated extensor tendon third finger. [place] [facility] [place] Family History Grandfather Cancer Stroke Paternal Hypertension Paternal Grandmother Dementia Hypertension Paternal Unknown Diabetes Multiple family members on paternal side Psychiatric illness Aunt Suicide Aunt Sister and Cousin attempted but unsuccessful. Mother Hyperlipidemia Hypertension Father Hyperlipidemia Hypertension Family/Other Heart disease Maternal great-grandmother Breast cancer, Onset Age: 28 Maternal aunt Social History Smoking and tobacco status: current every day smoker cigarettes Alcohol intake: never Lives independently: Yes History of recent travel: No Female Reproductive History: Date of last menstrual period: 07/27/20 Physical Exam Const: COMMON NORMALS: no acute distress, average body habitus, patient oriented x3, no limitations, healthy appearing, alert and well nourished GENERAL APPEARANCE: cooperative ORIENTATION/CONSCIOUSNESS: Yes awake, Yes oriented to person, Yes oriented to place and Yes oriented to time HENMT: COMMON NORMALS: normocephalic, atraumatic, hearing grossly normal bilaterally, external ears normal and Normal external nose present HEAD & SCALP: normal to inspection, normocephalic and atraumatic FACE & SINUS: sinus tenderness maxillary NOSE: Normal external nose present EXTERNAL EAR: Yes external ears normal Eye: GENERAL EYE: appearance normal, both eyes and all related structures Neck/C-Spine: COMMON NORMALS: full ROM, no lymphadenopathy and no meningeal signs Resp: COMMON NORMALS: normal respiratory effort and clear to auscultation bilaterally AUSCULTATION: clear to auscultation bilaterally Cardio: COMMON NORMALS: regular rate and regular rhythm RATE: regular rate RHYTHM: regular rhythm GI: COMMON NORMALS: Normal to inspection, nondistended, normoactive bowel sounds present, Soft to palpation, non-tender, No hepatosplenomegaly present and no masses PALPATION: Yes Soft to palpation and Yes No hepatosplenomegaly present Neuro: VERONIQUE COMA SCALE: document GCS findings Veronique coma scale eye opening: Spontaneous Veronique coma scale verbal response: Orientated Veronique coma scale motor response: Obey commands Hudson coma scale total score: 15 COMMON NORMALS: patient oriented x3, CN's II-XII intact bilaterally, moves all extremities, no focal motor deficits, no sensory deficits noted and gait normal SENSORIUM/ORIENTATION: Yes alert, Yes oriented to person, Yes oriented to place and Yes oriented to time MENINGEAL SIGNS: Yes no meningeal signs Skin: COMMON NORMALS: no rashes or lesions noted GENERAL SKIN EXAM: no rashes or lesions noted TRAUMA: no lacerations or abrasions Course Vital Signs: Vital signs: Vital Signs Temperature 98.2 F 03/27/21 13:59 Pulse Rate 86 03/27/21 13:59 Respiratory Rate 14 03/27/21 13:59 Blood Pressure 133/86 03/27/21 13:59 Pulse Oximetry 99 03/27/21 15:18 MDM - COVID MDM Narrative: Medical decision making narrative: Patient clinically again appears in no acute distress. Her vital signs are perfect. It is somewhat unexpected to have symptoms now almost 3 weeks past her initial COVID test. She has complained twice now of intermittent fevers but has been afebrile upon both of her ED visits. I did discuss with patient how I would like to order labs/imaging/cultures to further evaluate for other sources of her fever but she refuses. Patient wants to get home to her daughter who is home alone and wants to follow up with PCP. I spoke to Dr. Gardner's office who stated they will see her at 10:30 tomorrow. Imaging Data: CXR: Radiologist's impression: [address] [address]GPib ReportSigned Patient: Helen Mccauley #: [id number]: [id number]#:[id number]/Sex: 30 / FADM Date: 03/27/21Loc: ERRoom/Bed:Attending Dr: Ordering Provider/Ordering MD: Sapna Simental Date of Service: 03/27/21 Procedure(s): XR chest 1V portable [id number] Accession Number(s): [id number] Report Number: [id number] PROCEDURE INFORMATION: Exam: XR Chest Exam date and time: 03/27/2021 2:08 PM Age: 30 years old Clinical indication: Fever; Additional info: Covid symptoms, fevers TECHNIQUE: Imaging protocol: XR of the chest. Views: 1 view. COMPARISON: CR XR chest 2V* [id number] 02/12/2021 3:50 PM FINDINGS: Lungs: Unremarkable. No consolidation. Pleural spaces: Unremarkable. No pleural effusion. No pneumothorax. Heart/Mediastinum: Unremarkable. No cardiomegaly. Bones/joints: Unremarkable. XR/XR chest 1V portable [id number] IMPRESSION: No acute findings. Radiation Dose CTDIVOL = (mGy): DLP = (mGy-cm) Dictated By:Andi Ferguson MDSigned By:Andi Ferguson MDSigned Date/Time:03/27/21 1458DD/ 1408 COVID Results: SARS-CoV-2 Antigen (Rapid) Negative (Negative) 01/03/21 14:04 01/03/21 SARS-CoV-2 RNA (RT-PCR) Detected (NOT DETECTED) A 03/09/21 13:32 03/09/21 Nasal/Oral Coronavirus 2019 PCR Not detected 01/03/21 14:04 01/03/21 Discharge Plan Discharge Patient Disposition: Home Clinical Impression: COVID-19 long hauler Condition: Stable Prescriptions: No Action albuterol sulfate [ProAir HFA] 90 mcg/actuation HFA aerosol inhaler 2 puff inhalation Q6H PRN (Reason: shortness of breath or wheezing) Qty: 8.5 RF: 0 tizanidine 4 mg tablet 4 mg PO BID PRN (Reason: muscle spasticity) Qty: 60 RF: 0 ferrous sulfate [Iron (ferrous sulfate)] 325 mg (65 mg iron) tablet 325 mg PO BID 50 Days Qty: 100 RF: 5 polyethylene glycol 3350 [Miralax] 17 gram powder in packet 17 g PO DAILY Qty: 100 RF: 2 pantoprazole 40 mg tablet,delayed release (DR/EC) 40 mg PO DAILY 90 Days Qty: 90 RF: 0 loratadine [Claritin] 10 mg tablet 10 mg PO DAILY RF: 0 ondansetron HCl 4 mg tablet 4 mg PO Q8H PRN (Reason: nausea and vomiting) Qty: 14 RF: 0 phentermine 37.5 mg capsule 37.5 mg PO DAILY Qty: 30 RF: 0 tramadol 50 mg tablet 50 mg PO TID PRN (Reason: pain) 30 Days Qty: 90 RF: 5 Tylenol Extra Strength 500 mg Tablet 1,000 mg PO Q4H PRN (Reason: Pain) RF: 0 ibuprofen 200 mg Tablet 1,000 - 1,200 mg PO Q4H PRN (Reason: Pain) RF: 0 diclofenac sodium 75 mg tablet,delayed release (DR/EC) 75 mg PO BID PRN (Reason: Pain) RF: 0 gabapentin 800 mg tablet 800 mg PO TID RF: 0 trazodone 100 mg tablet 100 - 200 mg PO BEDTIME RF: 0 Discharge Orders: Discharge ED (Routine); Ordered 03/27/21 Ordered By: Sapna Simental Referrals: Domingo Gardner MD [Primary Care Provider] - Activity Restrictions/Additional Instructions: As we discussed you have an appointment at Dr. Gardner's office tomorrow at 10:30am. Stand Alone Forms: Work/School Release Coding Level of Care Code ED Baker Helper for Chg Fwd Exam Comprehensive Documented by User: Chon Perez DO 03/30/21 06:58 HPI - COVID General: Chief Complaint: COVID symptoms Stated Complaint: sob,fever 101-102,h/a,sinus congestion,nausea Time Seen by Provider: 03/27/21 14:07 COVID Results: SARS-CoV-2 Antigen (Rapid) Negative (Negative) 01/03/21 14:04 01/03/21 SARS-CoV-2 RNA (RT-PCR) Detected (NOT DETECTED) A 03/09/21 13:32 03/09/21 Nasal/Oral Coronavirus 2019 PCR Not detected 01/03/21 14:04 01/03/21 PFSH ED PFSH: Medical History (Updated 03/28/21 @ 12:37 by Domingo Gardner MD) Asthma Constipation resume habit of more fiber in the diet (cereal) and daily use of miralax Fibromyalgia History of thyroid cyst Hypothyroid Iron deficiency anemia Lumbar disc disease Lumbar disc disease with radiculopathy Moderate obesity Venous (peripheral) insufficiency Surgical History History of carpal tunnel surgery of right wrist (11/19/13) [place] [facility] [place] History of hand surgery (10/02/10) Repair of the lacerated extensor tendon third finger. [place] Wh[place] [facility] [place] Family History Grandfather Cancer Stroke Paternal Hypertension Paternal Grandmother Dementia Hypertension Paternal Unknown Diabetes Multiple family members on paternal side Psychiatric illness Aunt Suicide Aunt Sister and Cousin attempted but unsuccessful. Mother Hyperlipidemia Hypertension Father Hyperlipidemia Hypertension Family/Other Heart disease Maternal great-grandmother Breast cancer, Onset Age: 28 Maternal aunt Social History Smoking and tobacco status: current every day smoker cigarettes Alcohol intake: never Lives independently: Yes History of recent travel: No Course Vital Signs: Vital signs: Vital Signs Temperature 98.2 F 03/27/21 13:59 Pulse Rate 86 03/27/21 13:59 Respiratory Rate 14 03/27/21 13:59 Blood Pressure 133/86 03/27/21 13:59 Pulse Oximetry 99 03/27/21 15:18 MDM - COVID MDM Narrative: Medical decision making narrative: Chart reviewed and patient discussed with midlevel. Agree with assessment and plan. COVID Results: SARS-CoV-2 Antigen (Rapid) Negative (Negative) 01/03/21 14:04 01/03/21 SARS-CoV-2 RNA (RT-PCR) Detected (NOT DETECTED) A 03/09/21 13:32 03/09/21 Nasal/Oral Coronavirus 2019 PCR Not detected 01/03/21 14:04 01/03/21 Discharge Plan Discharge Patient Disposition: Home Clinical Impression: COVID-19 long hauler Condition: Stable Prescriptions: No Action albuterol sulfate [ProAir HFA] 90 mcg/actuation HFA aerosol inhaler 2 puff inhalation Q6H PRN (Reason: shortness of breath or wheezing) Qty: 8.5 RF: 0 tizanidine 4 mg tablet 4 mg PO BID PRN (Reason: muscle spasticity) Qty: 60 RF: 0 ferrous sulfate [Iron (ferrous sulfate)] 325 mg (65 mg iron) tablet 325 mg PO BID 50 Days Qty: 100 RF: 5 polyethylene glycol 3350 [Miralax] 17 gram powder in packet 17 g PO DAILY Qty: 100 RF: 2 pantoprazole 40 mg tablet,delayed release (DR/EC) 40 mg PO DAILY 90 Days Qty: 90 RF: 0 loratadine [Claritin] 10 mg tablet 10 mg PO DAILY RF: 0 ondansetron HCl 4 mg tablet 4 mg PO Q8H PRN (Reason: nausea and vomiting) Qty: 14 RF: 0 phentermine 37.5 mg capsule 37.5 mg PO DAILY Qty: 30 RF: 0 tramadol 50 mg tablet 50 mg PO TID PRN (Reason: pain) 30 Days Qty: 90 RF: 5 Tylenol Extra Strength 500 mg Tablet 1,000 mg PO Q4H PRN (Reason: Pain) RF: 0 ibuprofen 200 mg Tablet 1,000 - 1,200 mg PO Q4H PRN (Reason: Pain) RF: 0 diclofenac sodium 75 mg tablet,delayed release (DR/EC) 75 mg PO BID PRN (Reason: Pain) RF: 0 gabapentin 800 mg tablet 800 mg PO TID RF: 0 trazodone 100 mg tablet 100 - 200 mg PO BEDTIME RF: 0 Discharge Orders: Discharge ED (Routine); Ordered 03/27/21 Ordered By: Sapna Simental Referrals: Domingo Gardner MD [Primary Care Provider] - Activity Restrictions/Additional Instructions: As we discussed you have an appointment at Dr. Gardner's office tomorrow at 10:30am. Stand Alone Forms: Work/School Release Coding Level of Care Code ED Baker Helper for Chg Fwd Exam Comprehensive
[2021-03-27 15:18] VITALS: O2SAT 99
== END 2021-03-27 15:20 | disposition home or self-care (01) ==
PROVIDERS: Emergency Provider Physician Assistant; PCP Family Medicine
DX: U09.9 Post COVID-19 condition, unspecified (principal); F17.210 Nicotine dependence, cigarettes, uncomplicated
CPT/HCPCS: 71045; 99282

== ENCOUNTER → 2021-03-28 12:11 | Outpatient (BNVA) | payer BC, MEDICAID, SELFPAY | PROVIDERS: PCP Family Medicine; Visit Provider Family Medicine | DX: D64.9 Anemia, unspecified (principal) | CPT/HCPCS: 85018 ==

== ENCOUNTER → 2021-04-17 11:39 | Outpatient (BNVA) | payer BC, MEDICAID, SELFPAY | PROVIDERS: PCP Family Medicine; Visit Provider Family Medicine | DX: R31.9 Hematuria, unspecified (principal); D50.8 Other iron deficiency anemias | CPT/HCPCS: 81000; 85018 ==

== ENCOUNTER → 2021-10-25 19:23 | Outpatient (BNVA) | payer BC, MEDICAID, SELFPAY | PROVIDERS: PCP Family Medicine; Visit Provider Registered Nurse Neonatal Intensive Care | DX: N39.0 Urinary tract infection, site not specified (principal); R39.9 Unspecified symptoms and signs involving the genitourinary system | CPT/HCPCS: 81000; 87077; 87086; 87184 ==

== ENCOUNTER 2021-12-23 16:17 | Emergency (ER) | payer BC, MEDICAID, SELFPAY ==
--- NOTE | 2021-12-23 16:20 | XRR_ITS ---
PROCEDURE INFORMATION: Exam: XR Left Ribs Exam date and time: 12/23/2021 4:31 PM Age: 31 years old Clinical indication: Other: Lt rib pain; Additional info: L side rib pain TECHNIQUE: Imaging protocol: Radiologic exam of the Left ribs. Views: 2 views. COMPARISON: CR XR chest 1V portable [id number] 03/27/2021 2:26 PM FINDINGS: Bones/joints: No evidence of rib fracture. Soft tissues: Normal. XR/XR ribs LT 2V* [id number] IMPRESSION: No acute findings.
[2021-12-23 16:49] VITALS: BP 146/71; PULSE 71; RESP 16; TEMP 37.1; O2SAT 100; BMI 26.8
--- NOTE | 2021-12-23 17:33 | ED_ITS ---
HPI - Fall General: Chief Complaint: Fall Stated Complaint: left side ribs hurt Time Seen by Provider: 12/23/21 17:02 History of Present Illness: Patient is a 31-year-old female comes to the ED with left rib pain. Patient says yesterday she was walking out her front door and on the porch when her 3 dogs came through the door tripping patient and causing her to fall. She was approximately 2 feet in the air when she fell and hit the grass. She landed on her left side. Since fall she has had left rib pain that she rates currently a 10 out of 10. Pain worsens when she breathes or takes a deep breath. Denies any head trauma or loss of consciousness. Associated symptoms-after fall: Denies abdominal pain, chest pain, headache(s), hematuria or neck pain Review of Systems Const: Denies: fever(s), chills or fatigue Eyes: Denies: change in vision or eye discomfort ENMT: Denies: throat pain, odynophagia, nasal discharge or nasal congestion Card: Denies: chest pain, palpitations, edema, swelling of feet/ankles, dyspnea on exertion or orthopnea Resp: Reports: pain on inspiration (Left rib pain); Denies: dyspnea, productive cough or non-productive cough GI: Denies: abdominal pain, nausea, vomiting, diarrhea, constipation or hematochezia : Denies: flank pain, dysuria or hematuria Musc: Reports: other (Left rib pain); Denies: neck pain, back pain or extremity swelling Skin/Breast: Denies: rash or new lesions Neuro: Denies: headache(s), numbness in extremities or weakness in extremities PFS ED PFSH: Medical History Asthma Constipation resume habit of more fiber in the diet (cereal) and daily use of miralax COVID-19 Fibromyalgia History of thyroid cyst Hypothyroid Lumbar disc disease with radiculopathy Surgical History History of carpal tunnel surgery of right wrist (11/19/13) [place] [facility] [place]. History of hand surgery (10/02/10) Repair of the lacerated extensor tendon third finger. Per[place]. Whittington [place] [facility] [place] Family History Grandfather Cancer Stroke Paternal Hypertension Paternal Grandmother Dementia Hypertension Paternal Unknown Diabetes Multiple family members on paternal side Psychiatric illness Aunt Suicide Aunt Sister and Cousin attempted but unsuccessful. Mother Hyperlipidemia Hypertension Father Hyperlipidemia Hypertension Family/Other Heart disease Maternal great-grandmother Breast cancer, Onset Age: 28 Maternal aunt Social History Smoking and tobacco status: current every day smoker cigarettes Alcohol intake: never Lives independently: Yes History of recent travel: No Physical Exam Const: COMMON NORMALS: patient oriented x3, healthy appearing and alert GENERAL APPEARANCE: cooperative HENMT: COMMON NORMALS: normocephalic HEAD & SCALP: normocephalic MOUTH: Normal oral and palatal mucosa present THROAT: posterior oropharynx normal and uvula midline Neck/C-Spine: COMMON NORMALS: supple GENERAL: Yes normal visual inspection Chest: CHEST: Yes tenderness rib left mid-axillary line involving the 8th rib, involving the 9th rib and involving the 10th rib Resp: COMMON NORMALS: normal respiratory effort, No retractions, No use of accessory muscles and clear to auscultation bilaterally AUSCULTATION: clear to auscultation bilaterally Cardio: COMMON NORMALS: regular rate, regular rhythm, S1 normal heart sound present, S2 normal heart sound present, No gallops present (Cardio), No clicks present (Cardio), No murmurs present (Cardio) and Peripheral pulses 2+ throughout RATE: regular rate RHYTHM: regular rhythm HEART SOUNDS: S1 normal heart sound present and S2 normal heart sound present PERIPHERAL PULSES: Peripheral pulses 2+ throughout GI: COMMON NORMALS: Normal to inspection, nondistended, normoactive bowel sounds present, Soft to palpation, non-tender and no masses PALPATION: Yes Soft to palpation : COMMON NORMALS: Yes no CVA tenderness BLADDER/KIDNEY EXAM: Yes no CVA tenderness Back/Pelvis: COMMON NORMALS: no CVA tenderness Extremity: COMMON NORMALS: normal to inspection Neuro: COMMON NORMALS: patient oriented x3 SENSORIUM/ORIENTATION: Yes alert GAIT: Yes Normal gait present Skin: GENERAL SKIN EXAM: dry skin Course Vital Signs: Vital signs: Vital Signs Temperature 98.7 F 12/23/21 16:49 Pulse Rate 71 12/23/21 16:49 Respiratory Rate 16 12/23/21 16:49 Blood Pressure 146/71 12/23/21 16:49 Pulse Oximetry 100 12/23/21 16:49 Oxygen Delivery Me thod 12/23/21 16:49 MDM - Fall Medical Decision Making Patient is a 31-year-old female comes to the ED with left rib pain. Left rib pain started after she fell off front porch and her left ribs hit the ground. Denies any head trauma or loss of conscious. Since fall she has been having left rib pain that worsens with inspiration. Vitals are stable. Patient does have some palpable tenderness of left ribs 8 and 9. The rest of exam is benign. X-ray of left ribs showed no acute fractures or findings. Patient was diagnosed with left rib pain and discharged home with a prescription for hydrocodone to help with pain and an incentive spirometer to help with her breathing and to prevent any pneumonia. Told to follow-up with her PCP in the next week for reevaluation. Return to ED precautions given. Patient understood and agreed with plan. Lab Data Radiology Impressions Ribs X-Ray 12/23/21 16:20 IMPRESSION: No acute findings. Discharge Plan Discharge Patient Disposition: Home Clinical Impression: Rib pain on left side Condition: Stable Prescriptions: New ibuprofen 800 mg tablet 800 mg PO Q8H PRN (Reason: pain) Qty: 30 0RF No Action tizanidine 4 mg tablet 4 mg PO BID PRN (Reason: muscle spasticity) Qty: 60 0RF polyethylene glycol 3350 [Miralax] 17 gram powder in packet 17 g PO DAILY Qty: 100 2RF ferrous fumarate 324 mg (106 mg iron) tablet 324 mg PO BID Qty: 90 0RF loratadine [Claritin] 10 mg tablet 10 mg PO DAILY lactulose 10 gram/15 mL (15 mL) solution 15 ml PO BID 30 Days Qty: 900 0RF albuterol sulfate [ProAir HFA] 90 mcg/actuation HFA aerosol inhaler 2 puff inhalation Q6H PRN (Reason: shortness of breath or wheezing) Qty: 8.5 2RF pantoprazole 40 mg tablet,delayed release (DR/EC) 40 mg PO DAILY PRN (Reason: Epigastric pain) Qty: 30 2RF ondansetron HCl 4 mg tablet 4 mg PO Q6H PRN (Reason: nausea and vomiting) Qty: 20 0RF gabapentin 800 mg tablet See Rx Instructions .ROUTE .COMPLEX Qty: 90 5RF Dose Instruction: TAKE 1 TABLET BY MOUTH THREE TIMES A DAY Rx Instructions: TAKE 1 TABLET BY MOUTH THREE TIMES A DAY tramadol 50 mg tablet 50 mg PO TID PRN (Reason: pain) 30 Days Qty: 90 5RF Rx Instructions: Have increased the quantity from 60 to 90 Tylenol Extra Strength 500 mg Tablet 1,000 mg PO Q4H PRN (Reason: Pain) Discharge Orders: Discharge ED (Routine); Ordered 12/23/21 Ordered By: Trenton Donaldson Referrals: Domingo Gardner MD [Primary Care Provider] - Discharge Diet: Regular Discharge Activity: Increase activity as tolerated and Limit activity as instructed Patient Instructions: Opioid Safety Activity Restrictions/Additional Instructions: Follow-up with medical provider as directed in the next 7 to 10 days for reevaluation. Use incentive spirometer multiple times every hour to help your breathing and prevent developing pneumonia. Apply cold pack on sore area of ribs to help with symptoms as well. Rest, limit activity and lifting to under 10 pounds until cleared by PCP. Take medications as prescribed. Return to the ER or your medical provider if condition worsens. Please read and understand discharge instructions. Thank you for choosing [facility] for your healthcare needs today. Please realize this is an emergency room and that we are providing you with a medical screening exam and this may not be complete and all inclusive of all the testing and or work up that you may need to determine your ailment or severity of your illness. It is very important that you follow up as instructed or that you return to the Emergency Department should you have concerns or if your condition changes or worsens in any way. Stand Alone Forms: Work/School Release Coding Level of Care Code ED Supervisor Shearing for Gordon Fwd Exam Comprehensive
[2021-12-23] MEDS: HYDROcodone-acetaminophen 7.5-325 mg Tablet 1 TAB PO (18:26)
== END 2021-12-23 18:28 | disposition home or self-care (01) ==
PROVIDERS: Emergency Provider Physician Assistant; PCP Family Medicine
DX: R07.81 Pleurodynia (principal); F17.210 Nicotine dependence, cigarettes, uncomplicated
CPT/HCPCS: 71100; 99283

== ENCOUNTER → 2022-01-18 18:26 | Outpatient (BNVA) | payer BC, MEDICAID, SELFPAY | PROVIDERS: PCP Family Medicine; Visit Provider Registered Nurse Neonatal Intensive Care | DX: N39.0 Urinary tract infection, site not specified (principal); R39.9 Unspecified symptoms and signs involving the genitourinary system | CPT/HCPCS: 81000; 87077; 87086; 87184 ==

== ENCOUNTER 2022-06-12 13:04 | Emergency (ER) | payer BC, MEDICAID, SELFPAY ==
[2022-06-12 13:13] VITALS: BP 131/80; PULSE 78; RESP 16; TEMP 37; O2SAT 99; BMI 23.3
[2022-06-12 16:37] LABS: HCG Qualitative Urine. Negative (Negative)
[2022-06-12 17:05] LABS: Basophils # 0.1 10^3/uL (0.0-0.1); Basophils % 1.1 %; Eosinophils % 0.6 %; Hematocrit 26.7 % (37.0-47.0); Hemoglobin 6.9 g/dL (11.5-15.3); Lymphocytes # 2.4 10^3/uL (0.8-4.8); Lymphocytes % 37.8 %; Mean Corpuscular HGB Conc 25.8 g/dL (30.0-36.0); Mean Corpuscular Hemoglobin 18.9 pg (28.0-34.0); Mean Platelet Volume 9.2 fL (7.4-10.4); Monocytes # 0.5 10^3/uL (0.2-0.9); Monocytes % 7.7 %; Neutrophils # 3.29 10^3/uL (1.8-7.7); Neutrophils % 52.5 %; Nucleated Red Blood Cells % 0 %; Platelet Count 508 10^3/cmm (130-400); Red Blood Count 3.66 10^6/uL (4.1-5.3); Red Cell Distribution Width 17.1 % (12.1-15.1); White Blood Count 6.3 10^3/uL (4.0-10.0)
[2022-06-12 17:11] LABS: Add Urine Microscopic? YES; Bilirubin Urine Neg (Negative); Blood Urine Neg (Negative); Glucose Urine UA Norm (Normal); Ketones Urine Negative (Negative); Leukocyte Esterase Urine Negative (Negative); Nitrate Urine Negative (Negative); Protein Urine Neg (Negative); Urine Appearance Hazy (CLEAR); Urine Color Yellow (Yellow); Urobilinogen Urine Neg (Negative); pH Urine 6.5 (5-7)
[2022-06-12 17:12] LABS: Add Urine Culture? No; Amorphous Sediment Urine 1+ /hpf; RBC Urine RARE /hpf (0-2)
[2022-06-12 17:53] LABS: Alanine Aminotransferase 10 U/L (0-33); Albumin Level 4.2 g/dL (3.5-5.2); Alkaline Phosphatase 68 U/L (35-105); Anion Gap 14.3 (5-19); Aspartate Amino Transferase 18 U/L (0-32); Blood Urea Nitrogen 15 mg/dL (6-20); Calcium 9.3 mg/dL (8.5-10.5); Carbon Dioxide 26 mmol/L (22-29); Chloride 106 mmol/L (98-107); Globulin 2.2 g/dL (1.3-4.6); Glomerular Filtration Rate 95.8 mL/min (90-130); Glucose 89 mg/dL (65-115); Lipase 25 U/L (13-60); Osmolality Calculated 294 mOsm/kg (285-295); Potassium 4.3 mmol/L (3.5-5.1); Sodium 142 mmol/L (136-145); Total Bilirubin 0.2 mg/dL (0.15-1.2); Total Protein 6.4 g/dL (6.6-8.7)
--- NOTE | 2022-06-12 19:07 | ED_ITS ---
HPI - Female Genitourinary General: Chief complaint: Urogenital-Female Stated complaint: lower abd and back pain Time Seen by Provider: 06/12/22 19:07 History of Present Illness: Ms. Mccauley is a 32-year-old lady with history of anemia, back pain, thyroid disorder, fibromyalgia presenting to the emergency department for pelvic pain and generalized malaise. She reports 2-week history of gradual onset intermittent pelvic pain and rectal pain. Rectal pain is worse with bowel movements and sharp in nature. She notes sharp pain with intercourse in her vagina as well as bilateral radiation across her hips. She has had abnormal vaginal bleeding which is not like a typical period for her. Density symptoms of moderate though sometimes severe. Occasional radiation to the epigastric and upper abdominal region. No other specific changes in health, exacerbating, or alleviating factors identified. Onset (ago): week(s) Severity: moderate Female Urogenital Radiation: Non-Radiating Quality of pain: sharp and aching Consistency: progressively worsening Vaginal discharge: none Vaginal bleeding: moderate Urinary symptoms: Difficulty Urinating Exacerbating factors: intercourse Relieving factors: none Associated symptoms: Reports abdominal pain Sexual activity: Yes Review of Systems General: Reports: 10 or more systems reviewed and unremarkable except in HPI and below GI: Reports: abdominal pain PFSH ED PFSH: Medical History Asthma Constipation resume habit of more fiber in the diet (cereal) and daily use of miralax COVID-19 Fibromyalgia History of thyroid cyst Hypothyroid Lumbar disc disease with radiculopathy Surgical History History of carpal tunnel surgery of right wrist (11/19/13) Per[place]. Peterson [place] [facility] [place]. History of hand surgery (10/02/10) Repair of the lacerated extensor tendon third finger. Performed by Dr. Whittington at [facility] [place] Family History Grandfather Cancer Stroke Paternal Hypertension Paternal Grandmother Dementia Hypertension Paternal Unknown Diabetes Multiple family members on paternal side Psychiatric illness Aunt Suicide Aunt Sister and Cousin attempted but unsuccessful. Mother Hyperlipidemia Hypertension Father Hyperlipidemia Hypertension Family/Other Heart disease Maternal great-grandmother Breast cancer, Onset Age: 28 Maternal aunt Social History Smoking and tobacco status: current every day smoker cigarettes Alcohol intake: never Lives independently: Yes History of recent travel: No Physical Exam Const: COMMON NORMALS: alert GENERAL APPEARANCE: cooperative and well developed HENMT: COMMON NORMALS: normocephalic and atraumatic HEAD & SCALP: normocephalic and atraumatic Eye: COMMON NORMALS: conjunctivae normal CONJUNCTIVA: Yes conjunctivae normal SCLERA: sclerae normal Neck/C-Spine: COMMON NORMALS: supple GENERAL: Yes trachea midline Resp: COMMON NORMALS: clear to auscultation bilaterally EFFORT & INSPECTION: Yes able to speak in complete sentences AUSCULTATION: clear to auscultation bilaterally Cardio: COMMON NORMALS: regular rate and regular rhythm RATE: regular rate RHYTHM: regular rhythm GI: COMMON NORMALS: Soft to palpation PALPATION: Yes Soft to palpation, Yes Tenderness to palpation present (GI) Details: other, No Guarding due to palpation present (GI) and No Rigid due to palpation : OTHER: Pelvic exam performed with wallpaper embosser helper present. Mild tenderness about the perineum and suprapubic region externally without evidence of skin lesions or obvious cause. External genitalia appears normal. Cervix appears normal. Vaginal vault appears normal. Generalized tenderness to palpation on bimanual exam. Extremity: GENERAL: Yes normal exam except as noted and No edema Neuro: COMMON NORMALS: moves all extremities SENSORIUM/ORIENTATION: Yes alert and No Orientation impaired Psych: COMMON NORMALS: mental status grossly normal and Normal thought process present THOUGHT PROCESS: Normal thought process present Course Vital Signs: Vital signs: Vital Signs Temperature 98.6 F 06/12/22 13:13 Pulse Rate 71 06/12/22 19:15 Respiratory Rate 18 06/12/22 19:15 Blood Pressure 126/54 06/12/22 19:15 Pulse Oximetry 99 06/12/22 19:15 Oxygen Delivery Me thod 06/12/22 19:15 MDM - Female Medical Decision Making 32-year-old lady presenting with worsening pelvic pain. Patient is nontoxic. Exam as above. Labs with no leukocytosis, anemia is present and discussed with patient. No significant hematologic abnormalities. No evidence of urinary tract infection. I ordered imaging however the patient decided to leave prior to completion of ED evaluation. The exact cause of patient symptoms is unclear. Patient left against medical advice. Medical Records I reviewed the patient's medical records. Lab Data I reviewed the patient's lab results. 06/12/22 16:43 06/12/22 16:43 Laboratory Results WBC 6.3 10^3/uL (4.0-10.0) 06/12/22 16:43 RBC 3.66 10^6/uL (4.1-5.3) L 06/12/22 16:43 Hgb 6.9 g/dL (11.5-15.3) L 06/12/22 16:43 Hct 26.7 % (37.0-47.0) L 06/12/22 16:43 MCV 73.0 fl (81-99) L 06/12/22 16:43 MCH 18.9 pg (28.0-34.0) L 06/12/22 16:43 MCHC 25.8 g/dL (30.0-36.0) L 06/12/22 16:43 RDW 17.1 % (12.1-15.1) H 06/12/22 16:43 Plt Count 508 10^3/cmm (130-400) H 06/12/22 16:43 MPV 9.2 fL (7.4-10.4) 06/12/22 16:43 Neut % (Auto) 52.5 % 06/12/22 16:43 Lymph % (Auto) 37.8 % 06/12/22 16:43 [place] % (Auto) 7.7 % 06/12/22 16:43 Eos % (Auto) 0.6 % 06/12/22 16:43 Baso % (Auto) 1.1 % 06/12/22 16:43 Neut # (Auto) 3.29 10^3/uL (1.8-7.7) 06/12/22 16:43 Lymph # (Auto) 2.4 10^3/uL (0.8-4.8) 06/12/22 16:43 [place] # (Auto) 0.5 10^3/uL (0.2-0.9) 06/12/22 16:43 Eos # (Auto) 0.0 10^3/uL (0.0-0.8) 06/12/22 16:43 Baso # (Auto) 0.1 10^3/uL (0.0-0.1) 06/12/22 16:43 Nucleated RBC % (auto) 0 % 06/12/22 16:43 Nucleated RBCs # 0.0 /100WBC 06/12/22 16:43 Sodium 142 mmol/L (136-145) 06/12/22 16:43 Potassium 4.3 mmol/L (3.5-5.1) 06/12/22 16:43 Chloride 106 mmol/L (98-107) 06/12/22 16:43 Carbon Dioxide 26 mmol/L (22-29) 06/12/22 16:43 Anion Gap 14.3 (5-19) 06/12/22 16:43 BUN 15 mg/dL (6-20) 06/12/22 16:43 Creatinine 0.7 mg/dL (0.5-0.9) 06/12/22 16:43 GFR Calculation 95.8 mL/min (90-130) 06/12/22 16:43 Glucose 89 mg/dL (65-115) 06/12/22 16:43 Calculated Osmolality 294 mOsm/kg (285-295) 06/12/22 16:43 Calcium 9.3 mg/dL (8.5-10.5) 06/12/22 16:43 Total Bilirubin 0.2 mg/dL (0.15-1.2) 06/12/22 16:43 AST 18 U/L (0-32) 06/12/22 16:43 ALT 10 U/L (0-33) 06/12/22 16:43 Alkaline Phosphatase 68 U/L (35-105) 06/12/22 16:43 Total Protein 6.4 g/dL (6.6-8.7) L 06/12/22 16:43 Albumin 4.2 g/dL (3.5-5.2) 06/12/22 16:43 Globulin 2.2 g/dL (1.3-4.6) 06/12/22 16:43 Lipase 25 U/L (13-60) 06/12/22 16:43 HCG, Qual Negative (Negative) 06/12/22 16:10 Urine Color Yellow (Yellow) 06/12/22 16:10 Urine Appearance Hazy (CLEAR) A 06/12/22 16:10 Urine pH 6.5 (5-7) 06/12/22 16:10 Ur Specific [place] 1.020 (1.005-1.030) 06/12/22 16:10 Urine Protein Neg (Negative) 06/12/22 16:10 Urine Glucose (UA) Norm (Normal) 06/12/22 16:10 Urine Ketones Negative (Negative) 06/12/22 16:10 Urine Blood Neg (Negative) 06/12/22 16:10 Urine Nitrate Negative (Negative) 06/12/22 16:10 Urine Bilirubin Neg (Negative) 06/12/22 16:10 Urine Urobilinogen Neg mg/dL (Negative) 06/12/22 16:10 Ur Leukocyte Esterase Negative (Negative) 06/12/22 16:10 Urine RBC Rare /hpf (0-2) 06/12/22 16:10 Urine WBC None /hpf (0-5) 06/12/22 16:10 Ur Squamous Epith Cells None /hpf (0-5) 06/12/22 16:10 Amorphous Sediment 1+ /hpf 06/12/22 16:10 Urine Bacteria None /hpf (NONE) 06/12/22 16:10 Discharge Plan Discharge Patient Disposition: Left Against Medical Advice Clinical Impression: Pelvic pain, Anemia Condition: Stable Prescriptions: No Action ferrous fumarate 324 mg (106 mg iron) tablet 324 mg PO BID Qty: 90 0RF loratadine [Claritin] 10 mg tablet 10 mg PO DAILY lactulose 10 gram/15 mL (15 mL) solution 15 ml PO BID 30 Days Qty: 900 0RF cyclobenzaprine 10 mg tablet 10 mg PO BID PRN (Reason: muscle spasm) Qty: 30 0RF albuterol sulfate [ProAir HFA] 90 mcg/actuation HFA aerosol inhaler 2 puff inhalation Q6H PRN (Reason: shortness of breath or wheezing) Qty: 8.5 2RF prednisone 20 mg tablet 60 mg PO DAILY 5 Days Qty: 15 0RF levofloxacin 750 mg tablet 750 mg PO DAILY 7 Days Qty: 7 0RF albuterol sulfate 90 mcg/actuation HFA aerosol inhaler 2 inh inhalation Q4H PRN (Reason: shortness of breath or wheezing) Qty: 6.7 0RF Rx Instructions: until breathing returns to target peak flow/parameters gabapentin 800 mg tablet See Rx Instructions .ROUTE .COMPLEX Qty: 90 5RF Dose Instruction: TAKE 1 TABLET BY MOUTH THREE TIMES A DAY Rx Instructions: TAKE 1 TABLET BY MOUTH THREE TIMES A DAY tramadol 50 mg tablet 50 mg PO TID PRN (Reason: pain) 30 Days Qty: 90 5RF Rx Instructions: Have increased the quantity from 60 to 90 Tylenol Extra Strength 500 mg Tablet 1,000 mg PO Q4H PRN (Reason: Pain) ibuprofen 800 mg tablet 800 mg PO Q8H PRN (Reason: pain) Qty: 30 0RF Referrals: Domingo Gardner MD [Primary Care Provider] - Stand Alone Forms: Work/School Release Coding Level of Care Code ED [facility] for Gordon Jurado
[2022-06-12 19:15] VITALS: BP 126/54; PULSE 71; RESP 18; O2SAT 99
== END 2022-06-12 20:42 | disposition left against medical advice (07) ==
PROVIDERS: Family Medicine; Emergency Provider Emergency Medicine; PCP Family Medicine
DX: R10.2 Pelvic and perineal pain (principal); D64.9 Anemia, unspecified; F17.210 Nicotine dependence, cigarettes, uncomplicated
CPT/HCPCS: 36415; 80053; 81001; 81025; 83690; 85025; 87210; 87491; 87591; 99284; E0352

== ENCOUNTER → 2022-07-25 12:38 | Outpatient (BNVA) | payer BC, MEDICAID, SELFPAY | PROVIDERS: PCP Family Medicine; Visit Provider Obstetrics & Gynecology | DX: N93.8 Other specified abnormal uterine and vaginal bleeding (principal); Z12.4 Encounter for screening for malignant neoplasm of cervix | CPT/HCPCS: 83036; 83525; 84146; 84443; 87624 ==

== ENCOUNTER → 2022-10-14 12:14 | Outpatient (BNVA) | payer BC, MEDICAID, SELFPAY | PROVIDERS: PCP Family Medicine; Visit Provider Family Medicine | DX: N93.8 Other specified abnormal uterine and vaginal bleeding (principal); D64.9 Anemia, unspecified | CPT/HCPCS: 80053; 82728; 83540; 85025 ==

== ENCOUNTER → 2022-10-30 12:48 | Outpatient (BNVA) | payer BC, MEDICAID, SELFPAY | PROVIDERS: PCP Family Medicine; Visit Provider Obstetrics & Gynecology | DX: Z01.818 Encounter for other preprocedural examination (principal); R87.612 Low grade squamous intraepithelial lesion on cytologic smear of cervix (LGSIL) | CPT/HCPCS: 81025; 88305; 88342 ==

== ENCOUNTER 2022-11-13 11:10 | Outpatient (CLI) | payer BC, MEDICAID, SELFPAY ==
--- NOTE | 2022-11-13 10:30 | USR_ITS ---
PROCEDURE INFORMATION: Exam: US Pelvis Complete, Transabdominal and US Pelvis, Transvaginal Exam date and time: 11/13/2022 11:44 AM Age: 32 years old Clinical indication: Pelvic pain; Additional info: R10.2 - pelvic and perineal pain, patient does not want US at [facility] due to problems with her TECHNIQUE: Imaging protocol: Real-time complete transabdominal and transvaginal pelvic ultrasound with image documentation. Transvaginal imaging was used for better evaluation of the endometrium, adnexa, and/or cervix. COMPARISON: CR XR hip RT 2-3V wo/w pel* [id number] 07/25/2020 10:32 PM FINDINGS: Uterus: Uterus is normal. Endometrial stripe is normal with a thickness of 1.1 cm. Right ovary/adnexa: There is a 4.2 cm sonolucent simple cyst in the right ovary.. Normal ovarian blood flow. Left ovary/adnexa: There is a 3.4 cm sonolucent simple cyst in the left ovary.. Normal ovarian blood flow. Intraperitoneal space: Trace amount of free fluid. Urinary bladder: Normal. US/US pelv w/transvag [id number] IMPRESSION: 1. Bilateral sonolucent simple ovarian cysts.Benign finding in the physiologic size range. No follow-up is needed. (Reference: Lulu, 2019) 2. No acute abnormality. REFERENCES: Lulu Olmstead et al. Simple Adnexal Cysts: SRU Consensus Conference Update on Follow-up and Reporting. Radiology. 2019;293(2):359-371.
== END 2022-11-13 11:11 | disposition home or self-care (01) ==
PROVIDERS: PCP Family Medicine; Visit Provider Obstetrics & Gynecology
DX: R10.2 Pelvic and perineal pain (principal); N83.292 Other ovarian cyst, left side; N83.291 Other ovarian cyst, right side
CPT/HCPCS: 76830; 76856

== ENCOUNTER → 2024-04-06 13:02 | Outpatient (BNVA) | payer BC, MEDICAID, SELFPAY | PROVIDERS: PCP Family Medicine; Visit Provider Obstetrics & Gynecology | DX: Z01.419 Encounter for gynecological examination (general) (routine) without abnormal findings (principal); E03.9 Hypothyroidism, unspecified | CPT/HCPCS: 80053; 83001; 84146; 84443; 85025; 87624 ==

== ENCOUNTER → 2024-05-15 17:03 | Outpatient (BNVA) | payer BC, MEDICAID, SELFPAY | PROVIDERS: PCP Family Medicine | DX: R11.10 Vomiting, unspecified (principal) | CPT/HCPCS: 87400 ==

== ENCOUNTER → 2024-07-21 13:23 | Outpatient (BNVA) | payer BC, MEDICAID, SELFPAY | PROVIDERS: PCP Family Medicine; Visit Provider Obstetrics & Gynecology | DX: R87.619 Unspecified abnormal cytological findings in specimens from cervix uteri (principal) | CPT/HCPCS: 81025 ==

== ENCOUNTER 2024-08-11 06:00 | Outpatient (CLI) | payer BC, MEDICAID, SELFPAY | END 2024-08-11 06:01 | disposition home or self-care (01) | LOC: LAB 08-13 06:45 | PROVIDERS: PCP Family Medicine; Visit Provider Surgery | DX: N64.52 Nipple discharge (principal) | CPT/HCPCS: 80048; 83516; 84146; 84439; 85025 ==

== ENCOUNTER 2024-08-17 08:58 | Day surgery (SDC) | payer BC, MEDICAID, SELFPAY ==
[2024-08-17] VITALS (11 sets, daily range): BP systolic 112–136; BP diastolic 43–77; PULSE 58–77; RESP 15–18; TEMP 36.2–36.6; O2SAT 94–100; BMI 22.7
--- NOTE | 2024-08-17 02:29 | W.PM.OPSFHP ---
Same Day Surgery H&P Indication for Procedure/HPI DATE OF PROCEDURE: August 17, 2024 CHIEF COMPLAINT/INDICATIONFOR SURGICAL PROCEDURE: chronic pelvic pain abnormal pap PREOP DIAGNOSIS: chronic pelvic pain; abnormal pap PLANNED PROCEDURE: Operation Date: 08/17/24 10:45 Proposed Procedures p Laparoscopy 10218, 76752, R87.612,R10.2(Not Applicable) - Navdeep Benavides MD s Loop Electrosurgical Excision Procedure(Not Applicable) - Navdeep Benavides MD 34 y.o. with chronic pelvic pain and abnormal pap Medications/Allergies* Home Medications ?Medication ?Instructions ?Recorded ?Confirmed ?Type acetaminophen 500 mg tablet 1,000 mg PO Q4H PRN Pain 09/23/22 08/16/24 History (Tylenol Extra Strength) albuterol sulfate 90 mcg/actuation 2 puff inhalation Q4H PRN 08/16/24 08/16/24 History aerosol inhaler (Ventolin HFA) Shortness Of Breath Or Wheezing fluticasone 100 mcg-salmeterol 50 1 ea inhalation BID 08/16/24 08/16/24 History mcg/dose blistr powdr for inhalation (Advair Diskus) fluticasone propionate 50 2 spray intranasal DAILY 08/16/24 08/16/24 History mcg/actuation nasal spray,suspension trazodone 100 mg tablet 50 mg PO BEDTIME 08/16/24 08/16/24 History Allergies/Adverse Reactions Allergy/AdvReac Type Severity Reaction Status Date / Time No Known Allergies Allergy Verified 08/16/24 11:43 Pertinent History/Comorbid Conditions* Medical History (Updated 08/11/24 @ 14:40 by Edin Gaffney MD) Anxiety Severe anemia Dysfunctional uterine bleeding COVID-19 Constipation resume habit of more fiber in the diet (cereal) and daily use of miralax Lumbar disc disease with radiculopathy Hypothyroid Fibromyalgia Asthma History of thyroid cyst Surgical History (Updated 09/14/19 @ 19:10 by Farhan Chinchilla MD) History of carpal tunnel surgery of right wrist (11/19/13) [place] [facility] [place] History of hand surgery (10/02/10) Repair of the lacerated extensor tendon third finger. [place]. Whittington [place] [facility] [place] Family History (Updated 05/27/20 @ 16:02 by Farhan Chinchilla MD) Diabetes Unknown Multiple family members on paternal side Dementia Grandmother Heart disease Family/Other Maternal great-grandmother Hyperlipidemia Mother Father Psychiatric illness Unknown Aunt Breast cancer Family/Other, Onset Age: 28 Maternal aunt Suicide Unknown Aunt Sister and Cousin attempted but unsuccessful. Cancer Grandfather Hypertension Grandfather Paternal Grandmother Paternal Mother Father Stroke Grandfather Paternal Social History Smoking and tobacco/nicotine status: current every day tobacco/nicotine user Substance/Drug Use: never Pertinent Exam Findings alert, oriented x 3, clear to auscultation bilaterally and regular rate & rhythm Recommendations Surgery/Procedure today Coding Level of Care Code Acute Code for Chg Fwd
--- NOTE | 2024-08-17 09:44 | W.PM.OPSUD ---
Surgery/Procedure H&P Update DATE OF PROCEDURE: August 17, 2024 DATE H&P PERFORMED: 08/17/24 H&P UPDATE INFORMATION: I have reviewed H&P completed within last 30 days, I have examined patient prior to procedure and No changes to prior documentation PREOP DIAGNOSIS: chronic pelvic pain; abnormal pap PLANNED PROCEDURE: Operation Date: 08/17/24 10:45 Proposed Procedures p Laparoscopy 51765, 63351, R87.612,R10.2(Not Applicable) - Navdeep Benavides MD s Loop Electrosurgical Excision Procedure(Not Applicable) - Navdeep Benavides MD
[2024-08-17] MEDS: sodium chloride 0.9% 1,000 ML 30 ML IV (09:52)
[2024-08-17] MEDS: famotidine 20 mg/2 mL INJ IVP (09:58)
[2024-08-17] MEDS: scopolamine 1 mg PATCH 1 PATCH TRANSDERMA (09:58)
--- NOTE | 2024-08-17 10:17 | ANES.PREANE2 ---
Pre-Anesthetic Assessment Height/Weight: Height 1.7 m Weight 65.771 kg Temp Pulse Resp BP Pulse Ox O2 Del Method 97.9 F 67 18 122/43 100 Room Air 08/17/24 09:26 08/17/24 09:26 08/17/24 09:26 08/17/24 09:26 08/17/24 09:26 08/17/24 09:40 Preop Diagnosis: chronic pelvic pain; abnormal pap Operation Date: 08/17/24 10:45 Proposed Procedures p Laparoscopy 12371, 77182, R87.612,R10.2(Not Applicable) - Navdeep Benavides MD s Loop Electrosurgical Excision Procedure(Not Applicable) - Navdeep Benavides MD Last intake: Intake Last Liquid Date 08/16/24 Last Liquid Time 23:45 Last Solid Date 08/16/24 Last Solid Time 23:45 Social Tobacco and No alcohol Exam alert, oriented x 3, clear to auscultation bilaterally and regular rate & rhythm Airway Submandibular: within normal limits Cervical ROM: within normal limits Mallampati: Class I Dentition: chipped Pulmonary Asthma and Cough CV/HEM Anemia and Arrythmia Musc/skel Lower Back Pain and Osteoarthritis/DJD Neuropsych Syncope Anesthetic Plan ASA status: 2 Anesthesia: General Medications/Allergies Home Medications ?Medication ?Instructions ?Recorded ?Confirmed ?Last Taken ?Type acetaminophen 500 mg tablet 1,000 mg PO Q4H PRN Pain 09/23/22 08/16/24 Unknown History (Tylenol Extra Strength) albuterol sulfate 90 mcg/actuation 2 puff inhalation Q4H PRN 08/16/24 08/16/24 Unknown History aerosol inhaler (Ventolin HFA) Shortness Of Breath Or Wheezing fluticasone 100 mcg-salmeterol 50 1 ea inhalation BID 08/16/24 08/16/24 Unknown History mcg/dose blistr powdr for inhalation (Advair Diskus) fluticasone propionate 50 2 spray intranasal DAILY 08/16/24 08/16/24 Unknown History mcg/actuation nasal spray,suspension trazodone 100 mg tablet 50 mg PO BEDTIME 08/16/24 08/16/24 08/15/24 History Allergies Allergy/AdvReac Type Severity Reaction Status Date / Time No Known Allergies Allergy Verified 08/16/24 11:43 Current Medications Generic Name Dose Route Start Last Admin Trade Name Barbra PRN Reason Stop Dose Admin Sodium Chloride 1,000 mls @ 30 mls/hr 08/17/24 09:15 08/17/24 09:52 Sodium Chloride 0.9% IV 08/18/24 09:14 30 mls/hr .Q24H SHANA Administration PFSH Anesthesia Medical History Anxiety Severe anemia Dysfunctional uterine bleeding COVID-19 Constipation resume habit of more fiber in the diet (cereal) and daily use of miralax Lumbar disc disease with radiculopathy Hypothyroid Fibromyalgia Asthma History of thyroid cyst Surgical History History of carpal tunnel surgery of right wrist (11/19/13) Performed by Dr. Peterson at [facility] [place], [place]. History of hand surgery (10/02/10) Repair of the lacerated extensor tendon third finger. Performed by Dr. Whittington at [facility] [place] in [place], [place] Family History Grandfather Cancer Stroke Paternal Hypertension Paternal Grandmother Dementia Hypertension Paternal Unknown Diabetes Multiple family members on paternal side Psychiatric illness Aunt Suicide Aunt Sister and Cousin attempted but unsuccessful. Mother Hyperlipidemia Hypertension Father Hyperlipidemia Hypertension Family/Other Heart disease Maternal great-grandmother Breast cancer, Onset Age: 28 Maternal aunt Social History Smoking and tobacco/nicotine status: current every day tobacco/nicotine user Substance/Drug Use: never Female Reproductive History Date of last menstrual period: 08/09/24 Data Anesthesia Cardiac Studies: Holter Monitor 11/19/22
[2024-08-17] MEDS: vasopressin 20 unit/mL INJ 10 UNIT INJECTION (11:12)
--- NOTE | 2024-08-17 12:10 | PM.OP ---
Operative Report Date of procedure: August 17, 2024 Pre-op diagnosis: Chronic pelvic pain Long history of infertility Abnormal pap Post-op diagnosis: Bilateral hematosalpingx Post-op findings: Normal uterus and ovaries Both fallopian tubes massively swollen, appears to be filled with blood Bilateral fimbriae non-existent Normal ligaments, pelvic sidewalls, liver edge Minimal adhesions Procedure done: Laparoscopy Electrosurgical loop excision of the cervix Implants: none Specimens removed/disposition: cervical tissue Surgeon: Navdeep Benavides MD Anesthesia: General Estimated blood loss (mL): 5 Complications: none Findings: Normal uterus and ovaries Both fallopian tubes massively swollen, appears to be filled with blood Bilateral fimbriae non-existent Normal ligaments, pelvic sidewalls, liver edge Minimal adhesions Condition: stable Disposition: PACU Brief History: 34 y.o. with chronic pelvic pain, dysmenorrhea, dyspareunia, infertility Also with abnormal pap smear of cervix Procedure: Informed consent obtained. The patient was taken to the OR and placed supine on the table. General endotracheal anesthesia was given. The patient was then placed in dorsolithotomy position. The abdomen and perineum were prepped and draped in usual fashion. A 5 mm subumbilical skin incision was made. A laparoscopic trocar with sheath was inserted into the peritoneal cavity under direct vision with the laparoscope. Pneumoperitoneum was achieved. One separate 5 mm incision was made in the left mid-abdominal quadrant under direct visualization to accommodate an additional trocar and sheath. The pelvis was explored with the laparoscope. Normal uterus and ovaries were seen. The fallopian tubes were both massively swollen with what appears to be blood. The fimbriae were non-existent. There was minimal adhesions. The pelvic sidewalls; cul-de-sacs; uterosacral, infundibular and broad ligaments were normal with no evidence of endometriosis. The liver edge was normal. Decision was made not to remove the fallopian tubes due to lack of patient?s explicit consent and long history of infertility. No bleeding was seen All instruments were then removed from the abdominal cavity after the pneumoperitoneum was allowed to escape. The skin incisions were closed with 4-O monocryl. Dermabond was applied. A bivalve speculum was placed in the vagina. The anterior lip of the cervix was grasped with a single toothed tenaculum. The cervix was then infiltrated at the cervicovaginal junction with 20 U of vasopressin to decrease bleeding. Electrosurgical loop excision of the cervix was done to a depth of approximately 5 mm. Excellent hemostasis was noted. All instruments were then removed. The patient was placed supine, awakened, and taken to the recovery room. Postoperative condition: stable EBL: less than 5 cc Complications: none Sponge and instrument counts were correct x two
--- NOTE | 2024-08-17 12:29 | P.ANESPOST_ITS ---
Inpatient post-anesthesia follow up: Vital signs: Temperature 97.2 F Pulse Rate 63 Respiratory Rate 16 Blood Pressure 122/57 Pulse Oximetry 99 Oxygen Delivery Me thod Room Air Oxygen Flow Rate Fraction of Inspir ed Oxygen Hydration adequate: Yes Nausea and vomiting: No Pain level: Con trolled Mental status: Baseline
[2024-08-17] MEDS: TRAMadol 50 mg Tablet PO (12:34)
[2024-08-17] MEDS: acetaminophen 1,000 MG/100 ML PIGGYBACK 400 MG IV (12:34)
[2024-08-17] MEDS: HYDROmorphone 0.5 MG/0.5 ML INJ 0.25 MG IVP (13:09)
[2024-08-20 14:50] LABS: OR HCG Qualitative Urine Negative (Negative)
== END 2024-08-17 14:00 | disposition home or self-care (01) ==
PROVIDERS: Anesthesiology; PCP Family Medicine; Visit Provider Obstetrics & Gynecology
PROC: (CPT 49320; principal; 2024-08-17 10:45)
PROC: 0UBC7ZZ Excision of Cervix, Via Natural or Artificial Opening (ICD-10-PCS; CPT 57522; 2024-08-17 10:45)
DX: N83.6 Hematosalpinx (principal); R87.612 Low grade squamous intraepithelial lesion on cytologic smear of cervix (LGSIL); R10.2 Pelvic and perineal pain; E03.9 Hypothyroidism, unspecified; F17.200 Nicotine dependence, unspecified, uncomplicated; Z79.899 Other long term (current) drug therapy; N97.9 Female infertility, unspecified; N94.6 Dysmenorrhea, unspecified
CPT/HCPCS: 57460; 81025; 88305; J0131; J1100; J1171; J2250; J2405; J2704; J3010; J3490; J7030; J9999

== ENCOUNTER 2024-08-19 13:49 | Outpatient (CLI) | payer BC, MEDICAID, SELFPAY ==
--- NOTE | 2024-08-19 14:00 | MM_ITS ---
WS: [id number] BILATERAL 3D TOMOSYNTHESIS DIGITAL DIAGNOSTIC MAMMOGRAPHY WITH CAD CLINICAL INFORMATION: Nipple Discharge HISTORY: Bilateral nipple discharge. RIGHT breast lump. COMPARISON: Baseline TECHNIQUE: Bilateral CC, MLO, and ML views. FINDINGS: Scattered fibroglandular densities bilaterally. Normal bilateral parenchymal pattern. No suspicious parenchymal abnormalities deep to the palpable marker. Ultrasound is pending. ULTRASOUND BREAST BILATERAL TECHNIQUE: Ultrasound bilateral breast focused area of concern. CLINICAL INFORMATION: Nipple Discharge FINDINGS: In the area of patient concern RIGHT breast is a simple cyst measuring 3 x 5 x 6 mm 8 o'clock position 2 cm from the nipple. Additional tiny cyst at the 8 o'clock position 2 cm from the nipple RIGHT BREAST: Subareolar ultrasound demonstrates no suspicious abnormalities. LEFT BREAST: Subareolar ultrasound demonstrates no suspicious abnormalities. Additional ultrasound LEFT breast at the 6 o'clock position 4 cm from the nipple demonstrates a complex cyst measuring 8 x 4 x 6 mm MM/MM diag BI tomosynthesis [id number] IMPRESSION: DENSITY: There are scattered areas of fibroglandular density. BI-RADS: 2 - Benign. FOLLOW UP: Age 38 Recommend annual screening mammography age 38
--- NOTE | 2024-08-19 15:20 | US_ITS ---
WS: [id number] BILATERAL 3D TOMOSYNTHESIS DIGITAL DIAGNOSTIC MAMMOGRAPHY WITH CAD CLINICAL INFORMATION: Nipple Discharge HISTORY: Bilateral nipple discharge. RIGHT breast lump. COMPARISON: Baseline TECHNIQUE: Bilateral CC, MLO, and ML views. FINDINGS: Scattered fibroglandular densities bilaterally. Normal bilateral parenchymal pattern. No suspicious parenchymal abnormalities deep to the palpable marker. Ultrasound is pending. ULTRASOUND BREAST BILATERAL TECHNIQUE: Ultrasound bilateral breast focused area of concern. CLINICAL INFORMATION: Nipple Discharge FINDINGS: In the area of patient concern RIGHT breast is a simple cyst measuring 3 x 5 x 6 mm 8 o'clock position 2 cm from the nipple. Additional tiny cyst at the 8 o'clock position 2 cm from the nipple RIGHT BREAST: Subareolar ultrasound demonstrates no suspicious abnormalities. LEFT BREAST: Subareolar ultrasound demonstrates no suspicious abnormalities. Additional ultrasound LEFT breast at the 6 o'clock position 4 cm from the nipple demonstrates a complex cyst measuring 8 x 4 x 6 mm US/US breast BI limited* [id number] IMPRESSION: DENSITY: There are scattered areas of fibroglandular density. BI-RADS: 2 - Benign. FOLLOW UP: Age 38 Recommend annual screening mammography age 38
== END 2024-08-19 13:50 | disposition home or self-care (01) ==
PROVIDERS: PCP Family Medicine; Visit Provider Surgery
DX: N60.02 Solitary cyst of left breast (principal); N60.01 Solitary cyst of right breast; R92.323 Mammographic fibroglandular density, bilateral breasts
CPT/HCPCS: 76642; 77062; 80048; 83516; 84146; 84439; 85025; G0279

== ENCOUNTER 2024-09-04 18:05 | Emergency (ER) | payer BC, MEDICAID, SELFPAY ==
[2024-09-04 18:22] VITALS: BP 130/70; PULSE 81; RESP 16; TEMP 36.7; O2SAT 100; BMI 23.5
--- NOTE | 2024-09-04 18:36 | CTR_ITS ---
PROCEDURE INFORMATION: Exam: CT Abdomen And Pelvis With Contrast Exam date and time: 09/04/2024 7:28 PM Age: 34 years old Clinical indication: Abdominal pain; Generalized; Prior surgery; Surgery date: <1 month; Surgery type: Recent laparoscopy; Additional info: Unspecified abdominal pain TECHNIQUE: Imaging protocol: Computed tomography of the abdomen and pelvis with contrast. Radiation optimization: All CT scans at this facility use at least one of these dose optimization techniques: automated exposure control; mA and/or kV adjustment per patient size (includes targeted exams where dose is matched to clinical indication); or iterative reconstruction. Contrast material: OMNIPAQUE 350; Contrast volume: 100 ml; Contrast route: INTRAVENOUS (IV); COMPARISON: CR XR hip RT 2-3V wo/w pel* [id number] 07/25/2020 10:32 PM RADIATION DOSE METRICS: Total DLP (mGy-cm): 515.4 FINDINGS: Lungs: Unremarkable. Liver: Normal. No mass. Gallbladder and biliary ducts: Normal. No calcified stones. No ductal dilation. Pancreas: Normal. No ductal dilation. Spleen: Normal. No splenomegaly. Adrenal glands: Normal. No mass. Kidneys and ureters: Normal. No hydronephrosis. Stomach and bowel: Unremarkable. No obstruction. No mucosal thickening. Appendix: No evidence of appendicitis. Intraperitoneal space: Small amount of free pelvic fluid. Vasculature: Unremarkable. No abdominal aortic aneurysm. Lymph nodes: Unremarkable. No enlarged lymph nodes. Urinary bladder: Unremarkable as visualized. Reproductive: Simple bilateral ovarian cysts measuring up to 4.2 on the right and 3.4 on the left. Bones/joints: Unremarkable. No acute fracture. Soft tissues: Unremarkable. CT/CT abdomen pelvis w con* [id number] IMPRESSION: 1. No acute abdominopelvic abnormality. 2. Small amount of free pelvic fluid, nonspecific finding and may be physiologic in this young patient. 3. Simple bilateral ovarian cysts measuring up to 4.2 on the right and 3.4 on the left. Benign findings in the physiologic range size. No follow-up is needed.No further imaging is recommended. (Reference: Reed) REFERENCES: Reed et al. Management of Incidental Adnexal Findings on CT and MRI: A White Paper of the ACR Incidental Findings Committee, J Am Edu Radiol. 2020 Jun;17(2):248-254.
[2024-09-04 18:46] VITALS: BP 132/40; PULSE 75; O2SAT 100
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
[2024-09-04 19:11] LABS: Basophils # 0.1 10^3/uL (0.0-0.1); Basophils % 0.6 %; Eosinophils % 0.2 %; Hematocrit 26.5 % (36-47); Lymphocytes # 1.7 10^3/uL (0.8-4.8); Lymphocytes % 17.5 %; Mean Corpuscular HGB Conc 26.8 g/dL (30-55); Mean Corpuscular Hemoglobin 20.6 pg (27-33); Mean Platelet Volume 9.4 fL (7.4-10.4); Monocytes # 0.8 10^3/uL (0.2-0.9); Monocytes % 8.4 %; Nucleated Red Blood Cells % 0 %; Platelet Count 475 10^3/cmm (157-399); Red Blood Count 3.44 10^6/uL (3.85-5.65); Red Cell Distribution Width 16.7 % (12.1-15.1); White Blood Count 9.87 10^3/uL (3.29-11.43)
[2024-09-04 19:29] LABS: Alanine Aminotransferase 15 U/L (0-33); Alkaline Phosphatase 62 U/L (35-105); Anion Gap 17.7 (5-19); Aspartate Amino Transferase 20 U/L (0-32); Blood Urea Nitrogen 14 mg/dL (6-20); Calcium 8.8 mg/dL (8.5-10.5); Carbon Dioxide 19 mmol/L (22-29); Chloride 105 mmol/L (98-107); Creatinine Clr Calc Pharmacy 131.3223; Globulin 2.6 g/dL (1.3-4.6); Glomerular Filtration Rate 113.1 mL/min (90-130); Glucose 99 mg/dL (65-115); Osmolality Calculated 287 mOsm/kg (285-295); Potassium 3.7 mmol/L (3.5-5.1); Sodium 138 mmol/L (136-145); Total Bilirubin 0.2 mg/dL (0.15-1.2); Total Protein 6.6 g/dL (6.6-8.7)
[2024-09-04] MEDS: iohexol 350 mg/mL 500 mL Btl (per mL) IV (19:32)
[2024-09-04 19:34] LABS: Bacteria Urine None Seen /hpf; Hyaline Casts Urine 0.81 /lpf; RBC Urine 0-2 /hpf (0-2); Squamous Epithelial Cell Urine 0-5 /hpf (0-5); WBC Urine 0-5 /hpf (0-5)
[2024-09-04 19:36] LABS: Add Urine Microscopic? YES; Bilirubin Urine Negative (Negative); Blood Urine Negative (Negative); Glucose Urine UA Negative (Normal); Ketones Urine Negative (Negative); Leukocyte Esterase Urine Negative (Negative); Nitrate Urine Negative (Negative); Protein Urine Negative (Negative); Specific Gravity, Urine 1.011 (1.005-1.030); Urine Color Yellow (Yellow); Urobilinogen Urine 0.2 mg/dL (Negative); pH Urine 7.5 (5-7)
[2024-09-04 19:37] LABS: Urine Appearance Clear (CLEAR)
[2024-09-04] MEDS: tetanus-dipt-pertussis 0.5 mL SDV IM (19:42)
[2024-09-04 20:00] VITALS: BP 117/82; PULSE 68; RESP 16; O2SAT 99
[2024-09-04 21:12] VITALS: BP 117/82; PULSE 68; RESP 16; O2SAT 99
== END 2024-09-04 21:15 | disposition home or self-care (01) ==
PROVIDERS: Emergency Provider Student in an Organized Health Care Education/Training Program; PCP Family Medicine
DX: S40.811A Abrasion of right upper arm, initial encounter (principal); S30.811A Abrasion of abdominal wall, initial encounter; S80.212A Abrasion, left knee, initial encounter; S80.211A Abrasion, right knee, initial encounter; V28.49XA Other motorcycle driver injured in noncollision transport accident in traffic accident, initial encounter; Z72.0 Tobacco use; Z23 Encounter for immunization
CPT/HCPCS: 36415; 74177; 80053; 81001; 85025; 90471; 90715; 99285

== ENCOUNTER 2024-09-14 20:26 | Emergency (ER) | payer BC, MEDICAID, SELFPAY ==
[2024-09-14 20:28] VITALS: BP 119/58; PULSE 79; RESP 16; TEMP 36.8; O2SAT 100; BMI 23.5
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
[2024-09-14 20:57] LABS: Basophils # 0.1 10^3/uL (0.0-0.1); Eosinophils % 0.5 %; Hematocrit 25.6 % (36-47); Lymphocytes # 1.5 10^3/uL (0.8-4.8); Lymphocytes % 24.2 %; Mean Corpuscular Hemoglobin 20.2 pg (27-33); Mean Corpuscular Volume 74.9 fl (85-98); Mean Platelet Volume 8.4 fL (7.4-10.4); Monocytes # 0.8 10^3/uL (0.2-0.9); Monocytes % 12.5 %; Neutrophils % 61.6 %; Nucleated Red Blood Cells % 0 %; Platelet Count 331 10^3/cmm (157-399); Red Blood Count 3.42 10^6/uL (3.85-5.65); Red Cell Distribution Width 16.8 % (12.1-15.1); White Blood Count 6.16 10^3/uL (3.29-11.43)
[2024-09-14 21:04] LABS: Bilirubin Urine Negative (Negative); Blood Urine Negative (Negative); Glucose Urine UA Negative (Normal); Ketones Urine 1+ (Negative); Leukocyte Esterase Urine Negative (Negative); Nitrate Urine Negative (Negative); Protein Urine Negative (Negative); Urine Appearance Clear (CLEAR); Urine Color Yellow (Yellow); pH Urine 5.5 (5-7)
[2024-09-14] MEDS: morphine 4 mg/mL SDV 1 mL IVP (21:07)
[2024-09-14] MEDS: ondansetron 2 mg/ML SDV 2 mL 4 MG IVP (21:07)
[2024-09-14 21:09] VITALS: BP 137/69; PULSE 72; RESP 16; O2SAT 100
[2024-09-14 21:09] LABS: Add Urine Microscopic? YES; Bacteria Urine Trace /hpf; RBC Urine 0-2 /hpf (0-2); Squamous Epithelial Cell Urine 0-5 /hpf (0-5); WBC Urine 0-5 /hpf (0-5)
[2024-09-14 21:14] LABS: Alanine Aminotransferase 14 U/L (0-33); Albumin Level 4.2 g/dL (3.5-5.2); Alkaline Phosphatase 75 U/L (35-105); Anion Gap 14.6 (5-19); Aspartate Amino Transferase 19 U/L (0-32); Blood Urea Nitrogen 12 mg/dL (6-20); Calcium 8.9 mg/dL (8.5-10.5); Carbon Dioxide 22 mmol/L (22-29); Chloride 104 mmol/L (98-107); Creatinine Clr Calc Pharmacy 157.5868; Globulin 2.9 g/dL (1.3-4.6); Glomerular Filtration Rate 139.6 mL/min (90-130); Glucose 94 mg/dL (65-115); HCG, Serum Qual Negative (Negative); Lipase 30 U/L (13-60); Osmolality Calculated 284 mOsm/kg (285-295); Potassium 3.6 mmol/L (3.5-5.1); Sodium 137 mmol/L (136-145); Total Bilirubin 0.2 mg/dL (0.15-1.2); Total Protein 7.1 g/dL (6.6-8.7)
[2024-09-14 21:19] LABS: Specific Gravity, Urine 1.034 (1.005-1.030)
[2024-09-14] MEDS: iohexol 350 mg/mL 500 mL Btl (per mL) IV (21:23)
[2024-09-14 21:40] VITALS: BP 128/60; PULSE 71; RESP 16; O2SAT 100
== END 2024-09-14 21:39 | disposition home or self-care (01) ==
PROVIDERS: Emergency Provider Emergency Medicine; PCP Family Medicine
DX: R10.9 Unspecified abdominal pain (principal); D64.9 Anemia, unspecified; Z72.0 Tobacco use
CPT/HCPCS: 36415; 74177; 80053; 81001; 83690; 84703; 85025; 96374; 96375; 99285; J2270; J2405

== ENCOUNTER → 2024-10-11 16:27 | Outpatient (BNVA) | payer BC, MEDICAID, SELFPAY | PROVIDERS: PCP Family Medicine; Visit Provider Family Medicine | DX: R10.2 Pelvic and perineal pain (principal); N83.6 Hematosalpinx; D64.9 Anemia, unspecified; N93.8 Other specified abnormal uterine and vaginal bleeding | CPT/HCPCS: 80053; 82728; 83550; 85025 ==

== ENCOUNTER 2024-10-15 08:08 | Oncology outpatient (recurring) (ONCR) | payer BC, MEDICAID, SELFPAY ==
[2024-10-15 08:52] LABS: Basophils # 0.1 10^3/uL (0.0-0.1); Basophils % 0.9 %; Eosinophils % 0.5 %; Hematocrit 25.6 % (36-47); Lymphocytes # 1.7 10^3/uL (0.8-4.8); Lymphocytes % 20.7 %; Mean Corpuscular Hemoglobin 20.5 pg (27-33); Mean Platelet Volume 9.4 fL (7.4-10.4); Monocytes # 0.6 10^3/uL (0.2-0.9); Monocytes % 7.5 %; Neutrophils # 5.77 10^3/uL (1.8-7.7); Neutrophils % 70.2 %; Nucleated Red Blood Cells % 0 %; Platelet Count 334 10^3/cmm (157-399); Red Blood Count 3.37 10^6/uL (3.85-5.65); White Blood Count 8.22 10^3/uL (3.29-11.43)
[2024-10-15 10:40] VITALS: PULSE 62; RESP 16; TEMP 36.8; O2SAT 98
[2024-10-15 10:55] VITALS: BP 113/69; PULSE 63; RESP 16; TEMP 36.8
[2024-10-15 11:15] VITALS: BP 130/76; PULSE 68; RESP 16; TEMP 36.8; O2SAT 99
[2024-10-15 11:40] VITALS: BP 125/77; PULSE 68; RESP 16; TEMP 36.5; O2SAT 99
[2024-10-15 12:07] VITALS: BP 135/68; PULSE 65; RESP 17; TEMP 36.3; O2SAT 99
[2024-10-15 12:59] VITALS: BP 135/81; PULSE 62; RESP 17; TEMP 36.7; O2SAT 98
== END 2024-11-01 23:59 | disposition home or self-care (01) ==
PROVIDERS: PCP Family Medicine; Visit Provider Family Medicine
DX: Z53.9 Procedure and treatment not carried out, unspecified reason; D64.9 Anemia, unspecified
CPT/HCPCS: 36430; 85025; 86850; 86900; 86920; P9016

== ENCOUNTER 2024-11-06 14:46 | Emergency (ER) | payer BC, MEDICAID, SELFPAY ==
--- OUTSIDE RECORDS SUMMARY | 2024-11-06 14:51 | XMS_ITS | Clinical Summary ---
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 Phone Unavailable Primary Care Provider Unavailabl e Social History Tobacco Use Types Packs/Day Years Used Date Smoking Tobacco: Never Assessed Comments Unknown Sex and Gender Information Value Date Recorded Sex Assigned at Not on file Legal Sex Female 1:06 PM CDT Gender Identity Not on file Sexual Orientation Not on file Plan of Treatment Health Maintenance Due Date Last Done Comments DTAP/TDAP/TD VACCINES (1 - Tdap) 2007 HEPATITIS B VACCINES (1 of 3 - 19+ 3-dose series) 2007 HPV/Cotest (21-29) 2009 CERVICAL CANCER SCREENING 2018 HPV/Cotest (30-65) 2018 PAP SMEAR 2018 INFLUENZA VACCINE (#1) 2023 HPV VACCINES Aged Out No longer eligi ble based on patient's age to complete this topic
--- OUTSIDE RECORDS SUMMARY | 2024-11-06 14:51 | XMS_ITS | Clinical Summary ---
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 Active gabapentin (NEURONTIN) 600 mg tablet Take by mouth 2 times daily. Active ALBUTEROL INHALATION Take by inhalation daily. Active FLUTICASONE/DEBBIE METEROL (ADVAIR HFA INHALATION) Take by inhalation daily. Active HYDROcodone-soledad taminophen (NORCO) 5-325 mg tabletIndicatio ns:Other closed fracture of distal end of right fibula, initial encounter Take 1 Tablet by mouth every 4 hours as needed for Pain, Moderate. Max Daily Amount: 6 Tablets 10 Tablet 1 Active traMADoL (ULTRAM) 50 mg tablet Take by mouth every 6 hours as needed for Pain. Active ondansetron (ZOFRAN) 4 mg Tablet Take 4 mg by mouth every 8 hours. 3 Active omeprazole (PriLOSEC) 20 mg Capsule, Delayed Release(E.C.) Take 20 mg by mouth daily. 3 Active diclofenac sodium (VOLTAREN) 75 mg Tablet, Delayed Release (E.C.) Take 75 mg by mouth 2 times daily. 3 Active peg 3350-electrolyt es (GOLYTELY) 236-22.74-6.74 -5.86 gram Recon Soln Take 1 Each (4,000 mL) by mouth one time for 1 dose. Use as directed the day prior to your procedure. 4000 mL 3 Active acetaminophen (TYLENOL) 500 mg tablet Take 1,000 mg by mouth every 6 hours as needed. '2-3 tablets at a time' Active bisacodyL (DULCOLAX) 5 mg Delayed Release tablet Take 5 mg by mouth 1 time daily as needed for Constipation. Active Active Problems No known active problems Family History Medical History Relation Name Comments Colon Cancer Neg Hx Social History Tobacco Use Types Packs/Day Years Used Date Smoking Tobacco: Every Day Cigarettes 1 5 Tobacco Cessation:Ready to Q uit: Not Asked; Counseling Given: Not Answered Alcohol Use Standard Drinks/Week Comments Yes 0 (1 standard drink = 0.6 oz pur e alcohol) occ Feeling Safe Answer Date Recorded Are you in a relationship wi th someone who hurts you emotionally and/or physically? No 12/09/2022 Comments No Sex and Gender Information Value Date Recorded Sex Assigned at Not on file Legal Sex Female 6:57 PM CDT Gender Identity Not on file Sexual Orientation Not on file Last Filed Vital Signs Vital Sign Reading Time Taken Comments Blood Pressure 109/51 12/09/2022 3:56 PM CDT Pulse 58 12/09/2022 3:56 PM CDT Temperature 36.3 C (97.3 F) 12/09/2022 3:50 PM CDT Respiratory Rate 16 12/09/2022 3:56 PM CDT Oxygen Saturation 100% 12/09/2022 3:56 PM CDT Inhaled Oxygen Concentration - - Weight 68.9 kg (152 lb) 12/09/2022 2:27 PM CDT Height 165.1 cm (5' 5 ) 12/09/2022 2:27 PM CDT Body Mass Index 25.29 12/09/2022 2:27 PM CDT Plan of Treatment Health Maintenance Due Date Last Done Comments DTAP/TDAP/TD VACCINES (1 - Tdap) 2007 HEPATITIS B VACCINES (1 of 3 - 19+ 3-dose series) 2007 HPV/Cotest (21-29) 2009 CERVICAL CANCER SCREENING 2018 HPV/Cotest (30-65) 2018 PAP SMEAR 2018 INFLUENZA VACCINE (#1) 2024 HPV VACCINES Aged Out No longer eligi ble based on patient's age to complete this topic Insurance [facility] MEDICAID
[2024-11-06 15:05] VITALS: BP 106/58; PULSE 82; RESP 18; TEMP 36.8; O2SAT 100; BMI 21.9
--- NOTE | 2024-11-06 15:07 | ECG_ITS ---
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
[2024-11-06 15:52] LABS: Hematocrit 32.8 % (36-47); Hemoglobin 9.00 g/dL (11.27-16.99); Mean Corpuscular HGB Conc 27.4 g/dL (30-55); Mean Corpuscular Hemoglobin 21.8 pg (27-33); Mean Corpuscular Volume 79.6 fl (85-98); Nucleated Red Blood Cells % 0 %; Platelet Count 355 10^3/cmm (157-399); Red Blood Count 4.12 10^6/uL (3.85-5.65); White Blood Count 6.64 10^3/uL (3.29-11.43)
--- NOTE | 2024-11-06 16:02 | W.ED.WEAKNES ---
HPI - Weakness General: Chief complaint: Weakness Stated complaint: lightheaded(sent by pedro) Time Seen by Provider: 11/06/24 15:48 History of Present Illness: 34-year-old female presents to the emergency room with complaints of generally feeling weak lightheaded and dizzy. She has been chronically anemic in the past with microcytic. Evidently a few weeks ago she received a partial transfusion reaction so stopped. No abdominal pain pain at this time she has had intermittent mild chest before. Patient is a smoker. A few weeks ago she had an exploratory laparoscopy for gynecological issues no significant findings were found. She told me about did not have any endometriosis she did not have any ovarian cysts. She was directed here by her primary care doctor today. Associated symptoms: Denies chest pain, chills, dysuria or fever(s) Review of Systems Const: Denies: fever(s) or chills Card: Denies: chest pain Resp: Denies: dyspnea GI: Denies: abdominal pain : Denies: dysuria, urinary frequency or urinary urgency Musc: Denies: neck pain or back pain Skin/Breast: Denies: rash PFSH ED PFSH: Medical History Anxiety Severe anemia Dysfunctional uterine bleeding COVID-19 Constipation resume habit of more fiber in the diet (cereal) and daily use of miralax Lumbar disc disease with radiculopathy Hypothyroid Fibromyalgia Asthma History of thyroid cyst Surgical History History of carpal tunnel surgery of right wrist (11/19/13) Performed [place] Dr. Peterson [place] [facility] [place], [place]. History of hand surgery (10/02/10) Repair of the lacerated extensor tendon third finger. Performed by Dr. Whittington at [facility] in [place], [place] Family History Grandfather Cancer Stroke Paternal Hypertension Paternal Grandmother Dementia Hypertension Paternal Unknown Diabetes Multiple family members on paternal side Psychiatric illness Aunt Suicide Aunt Sister and Cousin attempted but unsuccessful. Mother Hyperlipidemia Hypertension Father Hyperlipidemia Hypertension Family/Other Heart disease Maternal great-grandmother Breast cancer, Onset Age: 28 Maternal aunt Social History (Reviewed 11/06/24 @ 16:30 by AMANDA Vee Smoking and tobacco/nicotine status: current every day tobacco/nicotine user Substance/Drug Use: never Physical Exam Const: COMMON NORMALS: no acute distress GENERAL APPEARANCE: cooperative and comfortable ORIENTATION/CONSCIOUSNESS: Yes awake, Yes oriented to person, Yes oriented to place and Yes oriented to time HENMT: COMMON NORMALS: normocephalic, atraumatic and hearing grossly normal bilaterally HEAD & SCALP: normocephalic and atraumatic Resp: COMMON NORMALS: normal respiratory effort, No retractions, No use of accessory muscles and clear to auscultation bilaterally AUSCULTATION: clear to auscultation bilaterally Cardio: COMMON NORMALS: regular rate, regular rhythm and No murmurs present (Cardio) RATE: regular rate RHYTHM: regular rhythm GI: COMMON NORMALS: Soft to palpation and No hepatosplenomegaly present AUSCULTATION: Yes normoactive bowel sounds PALPATION: Yes Soft to palpation, No Tenderness to palpation present (GI), No Guarding due to palpation present (GI) and Yes No hepatosplenomegaly present Extremity: COMMON NORMALS: normal to inspection, capillary refill normal, no clubbing, cyanosis or edema, no calf tenderness and no pedal edema Neuro: SENSORIUM/ORIENTATION: Yes oriented to person, Yes oriented to place and Yes oriented to time Skin: COMMON NORMALS: no rashes or lesions noted GENERAL SKIN EXAM: no rashes or lesions noted Course Vital Signs: Vital signs: Vital Signs Temperature 98.3 F 11/06/24 15:05 Pulse Rate 64 11/06/24 17:32 Respiratory Rate 18 11/06/24 15:05 Blood Pressure 115/61 11/06/24 17:32 Pulse Oximetry 98 11/06/24 17:32 Oxygen Delivery Me thod Room Air 11/06/24 15:05 MDM - Weakness Medical Decision Making Labs and imaging reviewed hemoglobin is actually increased she still has a microcytic anemia but her hemoglobin is 9.2 much better than it has been last several times she has had it checked. She has no other symptoms no other findings on exam no other clinically significant laboratory abnormalities. Will discharge patient home continue to follow-up with her primary care doctor. Medical Records I reviewed the patient's medical records. Lab Data I reviewed the patient's lab results. 11/06/24 15:39 11/06/24 15:39 Laboratory Results WBC 6.64 10^3/uL (3.29-11.43) 11/06/24 15:39 RBC 4.12 10^6/uL (3.85-5.65) 11/06/24 15:39 Hgb 9.00 g/dL (11.27-16.99) L 11/06/24 15:39 Hct 32.8 % (36-47) L 11/06/24 15:39 MCV 79.6 fl (85-98) L 11/06/24 15:39 MCH 21.8 pg (27-33) L 11/06/24 15:39 MCHC 27.4 g/dL (30-55) L 11/06/24 15:39 RDW 18.2 % (12.1-15.1) H 11/06/24 15:39 Plt Count 355 10^3/cmm (157-399) 11/06/24 15:39 MPV 9.1 fL (7.4-10.4) 11/06/24 15:39 Neut % (Auto) 55.2 % 11/06/24 15:39 Lymph % (Auto) 32.2 % 11/06/24 15:39 [place] % (Auto) 10.8 % 11/06/24 15:39 Eos % (Auto) 0.5 % 11/06/24 15:39 Baso % (Auto) 1.1 % 11/06/24 15:39 Neut # (Auto) 3.67 10^3/uL (1.8-7.7) 11/06/24 15:39 Lymph # (Auto) 2.1 10^3/uL (0.8-4.8) 11/06/24 15:39 [place] # (Auto) 0.7 10^3/uL (0.2-0.9) 11/06/24 15:39 Eos # (Auto) 0.0 10^3/uL (0.0-0.8) 11/06/24 15:39 Baso # (Auto) 0.1 10^3/uL (0.0-0.1) 11/06/24 15:39 Nucleated RBC % (auto) 0 % 11/06/24 15:39 Nucleated RBCs # 0.0 /100WBC 11/06/24 15:39 Sodium 134 mmol/L (136-145) L 11/06/24 15:39 Potassium 3.8 mmol/L (3.5-5.1) 11/06/24 15:39 Chloride 100 mmol/L (98-107) 11/06/24 15:39 Carbon Dioxide 20 mmol/L (22-29) L 11/06/24 15:39 Anion Gap 17.8 (5-19) 11/06/24 15:39 BUN 12 mg/dL (6-20) 11/06/24 15:39 Creatinine 0.6 mg/dL (0.5-0.9) 11/06/24 15:39 GFR Calculation 113.1 mL/min (90-130) 11/06/24 15:39 Glucose 91 mg/dL (65-115) 11/06/24 15:39 Calculated Osmolality 277 mOsm/kg (285-295) L 11/06/24 15:39 Calcium 9.1 mg/dL (8.5-10.5) 11/06/24 15:39 Total Bilirubin 0.2 mg/dL (0.15-1.2) 11/06/24 15:39 AST 15 U/L (0-32) 11/06/24 15:39 ALT 16 U/L (0-33) 11/06/24 15:39 Alkaline Phosphatase 81 U/L (35-105) 11/06/24 15:39 Total Protein 6.9 g/dL (6.6-8.7) 11/06/24 15:39 Albumin 4.2 g/dL (3.5-5.2) 11/06/24 15:39 Globulin 2.7 g/dL (1.3-4.6) 11/06/24 15:39 Blood Type O Positive 11/06/24 15:39 Rho(D) Type Rh positive 11/06/24 15:39 Antibody Screen Negative 11/06/24 15:39 No radiology studies performed this visit Discharge Plan Discharge Patient Disposition: Home Clinical Impression: Anemia Condition: Stable Prescriptions: No Action cyclobenzaprine 10 mg tablet 10 mg PO BID PRN (Reason: muscle spasm in hips) Qty: 30 1RF pseudoephedrine HCl 60 mg tablet 60 mg PO Q6H PRN (Reason: nasal congestion) Qty: 30 0RF Tylenol Extra Strength 500 mg tablet 1,000 mg PO Q4H PRN (Reason: Pain) albuterol sulfate [Ventolin HFA] 90 mcg/actuation HFA aerosol inhaler See Rx Instructions .ROUTE .COMPLEX Qty: 18 3RF Dose Instruction: TAKE 2 PUFFS BY MOUTH EVERY 4 HOURS NEEDED FOR SHORTNESS OF BREATH OR FOR WHEEZE Rx Instructions: TAKE 2 PUFFS BY MOUTH EVERY 4 HOURS NEEDED FOR SHORTNESS OF BREATH OR FOR WHEEZE tramadol 50 mg tablet 50 mg PO BID PRN (Reason: pain) Qty: 60 1RF gabapentin 100 mg capsule 200 mg PO BID Qty: 120 1RF trazodone 100 mg tablet 50 mg PO BEDTIME Rx Instructions: TAKE 1 TABLET BY MOUTH DAILY . INCREASING FROM 50MG Discharge Orders: Discharge ED (Routine); Ordered 11/06/24 Ordered By: Chon Perez Referrals: Domingo Gardner MD [Primary Care Provider, [facility]] Discharge Diet: Usual diet Discharge Activity: Increase activity as tolerated Patient Instructions: Opioid Safety, Pain Management, Patient Portal & Alejandro Instructions Activity Restrictions/Additional Instructions: Thank you for choosing [facility] for your healthcare needs today. It is very important that you follow up as instructed or that you return to the Emergency Department should you have concerns or if your condition changes or worsens in any way. You were seen today for weakness. Your hemoglobin was at 9.0 not requiring a transfusion at this time. Continue to follow-up with your primary care doctor. Print Language: [place] Coding Level of Care Code ED Receptionist Telephone Operator for Chg Fwd Related Data Home Medications ?Medication ?Instructions ?Recorded ?Confirmed acetaminophen 500 mg tablet 1,000 mg PO Q4H PRN Pain 09/23/22 11/01/24 (Tylenol Extra Strength) trazodone 100 mg tablet 50 mg PO BEDTIME 08/16/24 11/01/24 Previous Rx's ?Medication ?Instructions ?Recorded albuterol sulfate 90 mcg/actuation See Rx Instructions .Route 10/11/24 aerosol inhaler (Ventolin HFA) .COMPLEX #18 ea cyclobenzaprine 10 mg tablet 10 mg PO BID PRN muscle spasm in 11/01/24 hips #30 tabs pseudoephedrine HCl 60 mg tablet 60 mg PO Q6H PRN nasal congestion 11/01/24 #30 tabs gabapentin 100 mg capsule 200 mg (2 x 100 mg) PO BID #120 11/04/24 caps tramadol 50 mg tablet 50 mg PO BID PRN pain #60 tabs 11/04/24 Allergies Allergy/AdvReac Type Severity Reaction Status Date / Time No Known Allergies Allergy Verified 11/01/24 16:21
[2024-11-06 16:20] LABS: Alanine Aminotransferase 16 U/L (0-33); Albumin Level 4.2 g/dL (3.5-5.2); Alkaline Phosphatase 81 U/L (35-105); Anion Gap 17.8 (5-19); Aspartate Amino Transferase 15 U/L (0-32); Blood Urea Nitrogen 12 mg/dL (6-20); Calcium 9.1 mg/dL (8.5-10.5); Carbon Dioxide 20 mmol/L (22-29); Chloride 100 mmol/L (98-107); Creatinine Clr Calc Pharmacy 127.6095; Globulin 2.7 g/dL (1.3-4.6); Glucose 91 mg/dL (65-115); Osmolality Calculated 277 mOsm/kg (285-295); Potassium 3.8 mmol/L (3.5-5.1); Sodium 134 mmol/L (136-145); Total Protein 6.9 g/dL (6.6-8.7)
[2024-11-06 17:32] VITALS: BP 115/61; PULSE 64; O2SAT 98
== END 2024-11-06 17:32 | disposition home or self-care (01) ==
PROVIDERS: Emergency Medicine; Emergency Provider Family Medicine; PCP Family Medicine
DX: D64.9 Anemia, unspecified (principal); Z72.0 Tobacco use
CPT/HCPCS: 80053; 85025; 86850; 86900; 93005; 93010; 99284